=== PATIENT | female | born 1975 | race Caucasian/White ===

== ENCOUNTER 2023-11-18 23:43 | Emergency (ER) | payer OTHER, SELFPAY ==
[2023-11-18 23:53] VITALS: BP 161/106; PULSE 68; O2SAT 98; BMI 46.6
--- NOTE | 2023-11-19 00:15 | ED.DENTAL1 ---
HPI - Dental/Oral General Chief complaint: Dental/Oral Stated complaint: left side face pain jaw/dental Time Seen by Provider: 11/19/23 00:03 Source: patient Mode of arrival: walk-in History of Present Illness HPI Narrative: This 48-year-old female with a history of periodontal disease with multiple broken, decayed, decaying and missing teeth presents for evaluation of severe tooth ache around tooth #22 that is decayed to the gumline. The patient states for the past several days she has been having this pain. She has been calling local dentist but has yet to find a dentist that will take her insurance. She states she has this pain that is radiating into her left ear. She also feels a lump in the lateral aspect of her mandible. She denies any fever or difficulty swallowing. She has no chest pain or shortness of breath. She states that she has severe anxiety and the dentist makes her more anxious than anything else which is why she has avoided going to the dentist for some many years. She declines the need for any narcotic pain medications because she states these also make her very anxious. Related Data Home Medications ?Medication ?Instructions ?Recorded ?Confirmed bupropion HCl 300 mg 24 hr tablet, 300 mg PO DAILY 11/19/23 11/19/23 extended release cyclobenzaprine 5 mg tablet 5 mg PO BEDTIME 11/19/23 11/19/23 duloxetine 60 mg capsule,delayed 60 mg PO BEDTIME 11/19/23 11/19/23 release ergocalciferol (vitamin D2) 1,250 50,000 unit PO QWEEK 11/19/23 11/19/23 mcg (50,000 unit) capsule gabapentin 300 mg capsule 300 mg PO BEDTIME 11/19/23 11/19/23 levothyroxine 75 mcg tablet 75 mcg PO DAILY 11/19/23 11/19/23 meloxicam 15 mg tablet 15 mg PO DAILY 11/19/23 11/19/23 metformin 500 mg tablet 500 mg PO BID 11/19/23 11/19/23 spironolactone 25 1 tab PO DAILY 11/19/23 11/19/23 mg-hydrochlorothiazide 25 mg tablet Allergies Allergy/AdvReac Type Severity Reaction Status Date / Time ciprofloxacin [From Cipro] Allergy Severe rash Verified 11/19/23 00:02 metoclopramide [From Reglan] AdvReac Intermediate Rash Verified 11/19/23 00:02 promethazine [From Phenergan] AdvReac Intermediate Agitated Verified 11/19/23 00:02 Review of Systems ROS Status of ROS 10 or more systems reviewed and unremarkable except as noted in history and below Exam Narrative Exam Narrative: Vital signs and Nursing Notes reviewed: Patient has a normal pulse, blood pressure is elevated at 161/106, she is not hypoxic with pulse ox 98% on room air General: Awake, alert, oriented, uncomfortable appearing obese female, she is holding the left side of her face and rocking back and forth on the stretcher, no respiratory distress HEENT: Normocephalic atraumatic, mucous membranes are moist and pink, there is marked periodontal disease with multiple missing and decayed and broken teeth. Tooth #22 is decayed to the gumline which is where she is having the tenderness adjacent in her jaw. There is some mild tenderness of the lateral mandible where there is a questionable area of swelling/abscess formation. There is no periapical abscess appreciated. There is no pooling of secretions. There is no swelling of the tongue, uvula or pharyngeal soft tissues. Chest: Lungs are clear to auscultation with good air entry, there is no wheezing rhonchi or rales appreciated no accessory muscle use, patient is speaking in complete sentences-no chest wall tenderness to palpation CVS: Regular rate and rhythm S1-S2, no murmurs rubs or gallops, pulses are brisk and equal bilaterally Skin: Normal in appearance without rash,pallor, petechiae or purpura Neuro: No focal deficits Constitutional Vital Signs, click to edit/add: Last Vital Signs Pulse 68 11/18/23 23:53 Resp 16 11/18/23 23:53 BP 161/106 H 11/18/23 23:53 Pulse Ox 98 11/18/23 23:53 O2 Del Method Room Air 11/18/23 23:53 Course Vital Signs Vital signs: Vital Signs Pulse Rate 68 11/18/23 23:53 Respiratory Rate 16 11/18/23 23:53 Blood Pressure 161/106 H 11/18/23 23:53 Pulse Oximetry 98 11/18/23 23:53 Oxygen Delivery Method Room Air 11/18/23 23:53 Pulse Rate 68 11/18/23 23:53 Respiratory Rate 16 11/18/23 23:53 Blood Pressure 161/106 H 11/18/23 23:53 Pulse Oximetry 98 11/18/23 23:53 Oxygen Delivery Method Room Air 11/18/23 23:53 MDM - Dental/Oral MDM Narrative Medical decision making narrative: This 48-year-old female with a history of periodontal disease presents for evaluation of pain adjacent to tooth #22 which is decayed to the gumline and has local gingival erythema without a notable abscess. There is also some mild tenderness along the lateral mandible where she may be developing a dental abscess. She declines the need for any narcotic analgesics but request antibiotics. She will be given a dose of amoxicillin and dental analgesia in the emergency department and discharged home with a prescription for amoxicillin. I explained to her that she will likely need an oral surgeon as a dentist may not be able to extract the teeth that are decayed to the gumline. She verbalizes understanding of this. She is otherwise stable for discharge. Discharge Plan Discharge Stand Alone Forms: Portal Instructions Chief Complaint: Dental/Oral Clinical Impression: Toothache, Periodontal disease Patient Disposition: Home, Self-Care Time of Disposition Decision: 00:15 Condition: Good Prescriptions / Home Meds: No Action spironolacton-hydrochlorothiaz 25-25 mg tablet 1 tab PO DAILY metformin 500 mg tablet 500 mg PO BID meloxicam 15 mg tablet 15 mg PO DAILY levothyroxine 75 mcg tablet 75 mcg PO DAILY gabapentin 300 mg capsule 300 mg PO BEDTIME ergocalciferol (vitamin D2) 1,250 mcg (50,000 unit) capsule 50,000 unit PO QWEEK duloxetine 60 mg capsule,delayed release(DR/EC) 60 mg PO BEDTIME cyclobenzaprine 5 mg tablet 5 mg PO BEDTIME bupropion HCl 300 mg tablet extended release 24 hr 300 mg PO DAILY Print Language: Montenegrin Instructions: Toothache (ED), Periodontal Disease (DC) Referrals: PAUL RAZO [Primary Care Provider] - 1 week
[2023-11-19] MEDS: BENZOCAINE 30 ML, lidocaine HCL 15 ML MM (00:40)
[2023-11-19] MEDS: AMOXICILLIN 500 MG CAPSULE PO (00:40)
== END 2023-11-19 00:46 | disposition home or self-care (01) ==
PROVIDERS: Emergency Provider Emergency Medicine; PCP Family Medicine
DX: K05.6 Periodontal disease, unspecified (principal); K08.89 Other specified disorders of teeth and supporting structures
CPT/HCPCS: 99283

== ENCOUNTER 2024-12-20 17:15 | Emergency (ER) | payer MEDICARE, SELFPAY ==
--- OUTSIDE RECORDS SUMMARY | 2024-10-13 11:30 | XMS_ITS ---
Author Organization [facility] vices Address [address] [place], [place] [address] Care Team Providers Care Livestock Farm Manager Name Role Phone Patti Rosado Unavailable [phone] REASON FOR VISIT Pain Social History Sex Assigned At : Social History Observation Description Sex Assigned At Female Encounters Encounter Location Date Provider Diagnosis [address] [id number] 10/13 Patti Rosado Plan Of Treatment No Information Progress Notes * Rosy THOMASDOB:1975 ( 49 yo F)Acc No.[id number]:10/13/2024 Medical Note Patient: Rosy TSE Provider: Crissy Rosado :1975 A ge:48 Y S ex:Female Date:10/13/2024 Address:[address] [place], [place] [id number] Subjective: * Chief Complaints: * 1 . Pain. * Medical History: Objective: * Vitals: Assessment: Plan: * Treatment: * Billing Information: * Visit Code: * Procedure Codes: * Electronic signature of PEPE Garcia on 12/20/2024 at 05:32 PM EDT Sign off status: Pending * Provider: Crissy Rosado Date: 10/13/2024 Generated for Nithin nelson/Vero/eTransmitting on: 12/20/2024 05:32 PM EDT
--- OUTSIDE RECORDS SUMMARY | 2024-12-17 09:15 | XMS_ITS ---
Author Organization [facility] vices Address [address] [place] [address] Care Team Providers Care Pmo Business Analyst Name Role Phone Patti Rosado Unavailable [phone] REASON FOR VISIT 4m anxiety, low back pain Social History Sex Assigned At : Social History Observation Description Sex Assigned At Female Encounters Encounter Location Date Provider Diagnosis [address] [id number] 12/17 Patti Rosado Plan Of Treatment No Information Progress Notes * Rosy THOMASDOB:1975 ( 49 yo F)Acc No.[id number]:12/17/2024 Medical Note Patient: Rosy TSE Provider: Crissy Rosado :1975 A ge:49 Y S ex:Female Date:12/17/2024 Address:[address] [place], [place] [id number] Subjective: * Chief Complaints: * 1 . 4m anxiety, low back pain. * Medical History: Objective: * Vitals: Assessment: Plan: * Treatment: * Billing Information: * Visit Code: * Procedure Codes: * Electronic signature of PEPE Garcia on 12/20/2024 at 05:32 PM EDT Sign off status: Pending * Provider: Crissy Rosado Date: 12/17/2024 Generated for Printi ng/Deloresg/eTransmitting on: 12/20/2024 05:32 PM EDT
[2024-12-20 17:19] VITALS: BP 143/96; PULSE 87; TEMP 36.7; O2SAT 97; BMI 50.3
--- OUTSIDE RECORDS SUMMARY | 2024-12-20 17:31 | XMS_ITS | Encounter Summary ---
Author Organization [employer] [facility] [employer] Address [id number] [address] [place] [address] Care Team Providers Care Supervisor Chemical Name Role Phone TejaMorgan nelson Domi MUNIZ Primary Care Provider + [phone] Encounter Details Date Type Department Care Team (Late st Contact Info) Description 04/11/2023 Telephone [facility] Phys[facility] Internal Medicine - Family Medicine [address] [place] [address] Elissa Milian MA Social History Tobacco Use Types Packs/Day Years Used Date Smoking Tobacco: Never Smokeless Tobacco: Never Alcohol Use Standard Drinks/Week Comments Never 0 (1 standard drink = 0.6 oz pur e alcohol) [facility] Utilities Answer Date Recorded In the past 12 months has e electric, gas, oil, or water company threatened to shut off services in your home? No 04/04/2023 Social Connection and Isolation Panel [NHANES] A nswer Date Recorded In a typical week, how many times do you talk on the phone with family, friends, or neighbors? Once a week 12/21/2021 How often do you get together with friends or re latives? Once a week 12/21/2021 How often do you attend scientologist or latter day serv ices? Never 12/21/2021 Do you belong to any clubs o r organizations such as scientologist groups, unions, fraternal or athletic groups, or school groups? No 12/21/2021 How often do you attend meet ings of the clubs or organizations you belong to? Never 12/21/2021 Are you , , di vorced, , never , or living with a partner? 12/21/2021 AUDIT-C Answer Date Recorded Q1: How often do you have a drink containing alcohol? Never 12/21/2021 Q2: How many drinks containi ng alcohol do you have on a typical day when you are drinking? Patient does not drink Q3: How often do you have si x or more drinks on one occasion? Never 12/21/2021 Overall Financial Resource Strain (CARDIA) Answe r Date Recorded How hard is it for you to pa y for the very basics like food, housing, medical care, and heating? Somewhat hard 03/04/2023 PHQ-2 Answer Date Recorded Total Score 21 03/04/2023 [facility] - Occupational Stress Questionnaire Answer Date Recorded Do you feel stress - tense, restless, nervous, or anxious, or unable to sleep at night because your mind is troubled all the time - these days? Very much 12/21/2021 Exercise Vital Sign Answer Date Recorde d On average, how many days pe r week do you engage in moderate to strenuous exercise (like a brisk walk)? 7 days 04/04/2023 On average, how many minutes do you engage in exercise at this level? 20 min 04/04/2023 PRAPARE - Transportation Answer Date Re corded In the past 12 months, has l ack of transportation kept you from medical appointments or from getting medications? Yes 01/2023 In the past 12 months, has l ack of transportation kept you from meetings, work, or from getting things needed for daily living? Yes 03/04/2023 Housing Instability Answer Date Recorde d Are you worried or concerned that in the next two months you may not have stable housing that you own, rent or stay in as a part of a household? No 03/04/2023 Childcare Answer Date Recorded Do problems getting child ca re make it difficult for you to work or study? No 12/21/2021 Employment Answer Date Recorded Do you need help finding a l ocal career center and/or a training program? No 12/21/2021 Purpose - Life Answer Date Recorded I have a purpose and direction in my life. Agree 12/21/2021 Education Answer Date Recorded What is the highest level of school you have completed or the highest degree you have received? Associate degree: occupational, technical, or vocational program 12/29/2020 Comments No Sex and Gender Information Value Date Recorded Sex Assigned at Female 02/23/2019 9:46 PM EDT Legal Sex Female 11:30 AM EDT Gender Identity Female 02/23/2019 9:46 PM EDT Sexual Orientation Straight 02/23/2019 9: 46 PM EDT documented as of this encounter Miscellaneous Notes * Telephone Encounter - Elissa Milian MA - 04/11/2023 10:49 AM EST Pt called and said she was here for appt and adipex refill not sent into [facility]. If you could please send that, took last pill today documented in this encounter Plan of Treatment Not on file documented as of this encounter Visit Diagnoses Not on filedocumented in this encounter Additional Health Concerns Assessment Noted Time PHQ-9 Depression Total Score: 21 023 3:48 PM EDT A Body Mass Index follow-up plan has been documented for the patient 03/19/2022 9:20 PM EDT documented as of this encounter Care Teams Supervisor Chemical Relationship Specialty Start Date End Date Morgan May DO [address] [facility], [facility] [place] [address] PCP - General Family Medicine 03/04/23 06/03/24 documented as of this encounter
--- OUTSIDE RECORDS SUMMARY | 2024-12-20 17:31 | XMS_ITS | Clinical Summary ---
Author Organization [facility] Address [id number] [address] [place] [address] Care Team Providers Care Water Treatment Plant Repairer Name Role Phone Unavailable Primary Care Provider Unavailabl e Allergies Active Allergy Reactions Criticality Noted Date Comments Ciprofloxacin 01/01/2017 Promethazine 01/01/2017 Metoclopramide Hcl 01/01/2017 Medications ergocalciferol (DRISDOL) 1,250 mcg (50,000 unit) capsuleIndicatio ns:Vitamin D deficiency take 1 capsule by mouth every week 12 capsule 1 3 Active cyanocobalamin, vitamin B-12, 2,500 mcg tablet, sublingualIndica tions:Factor V Leiden take 1 tablet by mouth under the tongue once daily 30 tablet 2 3 Active HIBICLENS 4 % external liquid WASH AREAS ON ARMPITS DAILY NEEDED 3 Active lidocaine HCL (Aspercreme, lidocaine HCL,) 4 % cream apply 1 APPLICATION topically IN THE MORNING and 1 APPLICATION at bedtime 76.5 g 1 3 Active DULoxetine (CYMBALTA) 60 mg capsuleIndicatio ns:Fibromyalgia take 1 capsule by mouth every morning then take 1 capsule BEFORE BEDTIME 180 capsule 1 4 Active levothyroxine (SYNTHROID, LEVOTHROID) 75 MCG tabletIndication s:Hypothyroidism , unspecified type take 1 tablet by mouth every morning 90 tablet 1 4 Active spironolacton-hy droCHLOROthiaz (ALDACTAZIDE) 25-25 mg per tabletIndication s:Edema, unspecified type TAKE 1 TABLET BY MOUTH EVERY MORNING 90 tablet 4 Active cyclobenzaprine (FLEXERIL) 5 mg tabletIndication s:Fibromyalgia Take 1 tablet (5 mg total) by mouth nightly. 30 tablet 2 4 Active meloxicam (MOBIC) 15 mg tabletIndication s:Chronic pain of left knee Take 1 tablet (15 mg total) by mouth in the morning. 30 tablet 2 4 Active gabapentin (NEURONTIN) 300 mg capsuleIndicatio ns:Fibromyalgia Take 1 capsule (300 mg total) by mouth once daily at bedtime. 30 capsule 2 4 Active buPROPion XL (WELLBUTRIN XL) 300 mg 24 hr tabletIndication s:Class 3 severe obesity with serious comorbidity and body mass index (BMI) of 50.0 to 59.9 in adult, unspecified obesity type (CMS-HCC) take 1 tablet by mouth every morning 90 tablet 4 Active metFORMIN (GLUCOPHAGE) 500 mg tablet take 1 tablet by mouth every morning and every evening with meals 180 tablet 1 5 Active Active Problems Problem Noted Date Diagnosed Date Morbid obesity 05/02/2023 Pedal edema 03/04/2023 Spinal stenosis of lumbar re gion with neurogenic claudication 03/01/2022 Overview (03/01/2022): Added automatically from request for surgery [id number] Spondylolisthesis at L4-L5 level 10/11/2021 Depression 06/27/2021 Worsening body fluid retention 06/27/2021 Neurogenic bladder 03/20/2021 Overview (10/11/2021): Frequency and urgency at night, med helping with urgency Polyarthralgia 12/13/2020 Bruising 02/02/2020 Urticaria 02/02/2020 Chronic mixed headache syndrome 11/26/2019 Memory impairment of gradual onset 11/26/2019 Obstructive sleep apnea syndrome 11/26/2019 Fibromyalgia 07/07/2019 Bilateral occipital neuralgia 07/07/2019 Factor V Leiden 07/07/2019 Aching headache 07/07/2019 Hypothyroidism 07/07/2019 Vitamin D deficiency 06/02/2019 Raynaud's phenomenon without gangrene 06/02/2019 Class 3 severe obesity due t o excess calories with serious comorbidity and body mass index (BMI) of 45.0 to 49.9 in adult 02/24/2019 Metabolic syndrome 01/01/2019 Other mixed anxiety disorders 01/01/2019 Chronic pain syndrome 01/01/2019 Rosacea 01/01/2019 Resolved Problems Problem Noted Date Diagnosed Date Resolved Date Vascular dementia without be havioral disturbance 11/26/2019 01/06/2024 Edema 01/01/2019 03/31/2019 Caffeine abuse 01/01/2019 03/31/2019 Encounters Date Type Department Care Team Description 12/01/2024 Refill [facility] [address] [place] [address] Morgan May, DO Chronic pain of left knee 10/10/2024 Refill [facility] [address] [place] [address] Morgan May, Edema, unspecified type 10/05/2024 Refill [facility] [address] [facility] [place] [address] Elke Lopez N, LIQUID WASTE TREATMENT PLANT OPERATOR-PRODUCT DEVELOPMENT SPECIALIST 09/30/2024 Refill [facility] [address] [place] [address] Morgan May, DO Fibromyalgia 09/24/2024 Travel 09/23/2024 Refill [facility] [address] [place] [address] Morgan May, Class 3 severe obesity with serious comorbidity and body mass index (BMI) of 50.0 to 59.9 in adult, unspecified obesity type ([facility]) from Last 3 Months Immunizations Immunization Administration Dates Next Due Influenza, Injectable, quadrivalent (PF) 023 Family History Medical History Relation Name Comments Brain cancer Brother 1 Sergio Gaitan Depression Daughter 2 suicide attempt Diabetes Father Hypertension Father Anxiety disorder Maternal Grandmother Depression Maternal Grandmother Hypertension Maternal Grandmother Depression Mother Diabetes Mother Hypertension Mother Thyroid disease Mother Cancer Paternal Grandfather type ? Cancer Paternal Grandmother type ? Breast cancer Neg Hx Relation Name Status Comments Brother 1 Sergio Gaitan Alive Brother 2 Dewey Gaitan Alive Daughter 1 Alive Daughter 2 Alive Daughter 3 Alive Father Alive Maternal Grandfather Maternal Grandmother Alive Mother Alive Paternal Grandfather Paternal Grandmother Sister Alive Son 1 Alive Son 2 Alive Son 3 Alive Social History Tobacco Use Types Packs/Day Years Used Date Smoking Tobacco: Never Smokeless Tobacco: Never Tobacco Cessation:Counseling Given: Not Answered Alcohol Use Standard Drinks/Week Comments Never 0 (1 standard drink = 0.6 oz pur e alcohol) [facility] Utilities Answer Date Recorded In the past [...] week 12/21/2021 How often do you attend rastafarian or baptism serv ices? Never 12/21/2021 Do you belong to any clubs o r organizations such as rastafarian groups, unions, fraternal or athletic groups, or [...] housing, medical care, and heating? Somewhat hard 04/19/2024 PHQ-2 Answer Date Recorded Total Score 0 01/06/2024 [facility] [place] of Occupat ional Health - Occupational Stress Questionnaire Answer Date Recorded Do you feel stress - tense, restless, nervous, or anxious, or unable to sleep at night because your mind is troubled all the time - these days? Very much 12/21/2021 Exercise Vital Sign Answer Date Recorde d Days of Exercise per Week Not on file 2022 On average, how many minutes do you engage in exercise at this level? 10 min 05/02/2023 PRAPARE - Transportation Answer Date Re corded In the past 12 months, has l ack of transportation kept you from medical appointments or from getting medications? Yes 03/28 In the past 12 months, has l ack of transportation kept you from meetings, work, or from getting things needed for daily living? Yes 04/19/2024 Housing Instability Answer Date Recorde d Are you worried or concerned that in the next two months you may not have stable housing that you own, rent or stay in as a part of a household? No 04/19/2024 Childcare Answer Date Recorded Do problems getting child ca re make it difficult for you to work or study? No 12/21/2021 Employment Answer Date Recorded Do you need help finding a [facility] career center and/or a training program? No 12/21/2021 Hunger Screening Answer Date Recorded Within the past 12 months we worried whether our food would run out before we got money to buy more. Never True 024 Within the past 12 months th e food we bought just didn't last and we didn't have money to get more. Sometimes True 04/19/2024 Purpose - Life Answer Date Recorded I [...] Orientation Straight 02/23/2019 9: 46 PM EDT Last Filed Vital Signs Vital Sign Reading Time Taken Comments Blood Pressure 118/60 04/21/2024 2:18 PM EST Pulse 94 04/21/2024 2:18 PM EST Temperature 36.7 C (98 F) 04/21/2024 2:18 PM EST Respiratory Rate 18 04/21/2024 2:18 PM EST Oxygen Saturation 96% 04/21/2024 2:18 PM EST Inhaled Oxygen Concentration - - Weight 148.3 kg (327 lb) 04/21/2024 2:18 PM EST Height 165.1 cm (5' 5 ) 04/21/2024 2:18 PM EST Body Mass Index 54.42 04/21/2024 2:18 PM EST Plan of Treatment Health Maintenance Due Date Last Done Comments Adult BMI Follow Up Plan 10/26/1991 DTaP,Tdap and Td Vaccines (1 - Tdap) 1992 Pap Smear 1994 Zoster (Shingles) Vaccine (1 of 2) 10/26/2023 Mammogram 04/01/2024 04/01/2023, 07/05/2020 Depression Screening 01/05/2025 01/06/2024 Influenza Vaccine 01/25/2025 04/04/2023 Adult BMI Screening 04/21/2025 04/21/2024 Tobacco Screening 04/21/2025 04/21/2024 Colon Cancer Screening 3 Year Cologuard 04/25/2027 1 06/25/2023 Medical Devices Not on file Procedures Procedure Name Priority Date/Time Associated Diagnosis Comments COLOGUARD NON-[facility] Routine 04/25/2024 10:30 AM EST Screen for colon cancer MAMM SCREENING BILATERAL W CAD Routine 04/01/2023 10:49 AM EST Encounter for screening mammogram for malignant neoplasm of breast from Last 3 Months or Most Recently Relevant to Health Maintenance Results * [facility]ologuard [facility] (04/25/2024 10:30 AM EST) EXTERNAL COLOGUARD Negative Negative 2023 1:32 PM EST [facility] (CLIA #:[id number]) Comment: NEGATIVE TEST RESULT. A negative Cologuard result indicates a low likelihood that a colorectal cancer (CRC) or advanced adenoma (adenomatous polyps with more advanced pre-malignant features) is present. The chance that a person with a negative Cologuard test has a colorectal cancer is less than 1 in 1500 (negative predictive value >99.9%) or has an advanced adenoma is less than 5.3% (negative predictive value 94.7%). These data are based on a prospective cross-sectional study of 10,000 individuals at average risk for colorectal cancer who were screened with both Cologuard and colonoscopy. (Lila Cummings et al, N Engl J Med 2014;370(14):7299-1049) The normal value (reference range) for this assay is negative. COLOGUARD RE-SCREENING RECOMMENDATION: Periodic colorectal cancer screening is an important part of preventive healthcare for asymptomatic individuals at average risk for colorectal cancer. Following a negative Cologuard result, the [place] [employer] Society and U.S. Multi-Society Task Force screening guidelines recommend a Cologuard re-screening interval of 3 years. References: [place] [employer] Guideline for Colorectal Cancer Screening: https://www.cancer.org/cancer/wiynr-uvohww-kboanj/ddfhxggvy-ejlibodny-alswafj/ac s-rec ommendations.html.; Juan Carlos DK, Kai CHRISTOPHER, Cristy NavaK, Colorectal Cancer Screening: Recommendations for Physicians and Patients from the U.S. Multi-Society Task Force on Colorectal Cancer Screening , Am J Gastroenterology 2017; 112:8299-9368. TEST DESCRIPTION: Composite algorithmic analysis of stool DNA-biomarkers with hemoglobin immunoassay. Quantitative values of individual biomarkers are not reportable and are not associated with individual biomarker result reference ranges. Cologuard is intended for colorectal cancer screening of adults of either sex, 45 years or older, who are at average-risk for colorectal cancer (CRC). Cologuard has been approved for use by the U.S. FDA. The performance of Cologuard was established in a cross sectional study of average-risk adults aged 50-84. Cologuard performance in patients ages 45 to 49 years was estimated by sub-group analysis of near-age groups. Colonoscopies performed for a positive result may find as the most clinically significant lesion: colorectal cancer [4.0%], advanced adenoma (including sessile serrated polyps greater than or equal to 1cm diameter) [20%] or non- advanced adenoma [31%]; or no colorectal neoplasia [45%]. These estimates are derived from a prospective cross-sectional screening study of 10,000 individuals at average risk for colorectal cancer who were screened with both Cologuard and colonoscopy. (Lila Garland al, N Engl J Med 2014;370(14):3586-6894.) Cologuard may produce a false negative or false positive result (no colorectal cancer or precancerous polyp present at colonoscopy follow up). A negative Cologuard test result does not guarantee the absence of CRC or advanced adenoma (pre-cancer). The current Cologuard screening interval is every 3 years. ([place] [employer] and U.S. Multi-Society Task Force). Cologuard performance data in a 10,000 patient pivotal study using colonoscopy as the reference method can be accessed at the following location: www.[employer]/results. Additional description of the Cologuard test process, warnings and precautions can be found at www.arviem AGrd.Alignable. Stool specimen (specimen) Rectum structure / Unknown 04/25/2024 10:30 AM EST 04/26/2024 7:17 PM EST Morgan May DO LAB ORDERABLES Final Result [facility] (CLIA #:[id number]) [address] [place] [address], * Mammography screening bilateral with CAD (04/01/2023 10:49 AM EST) Anatomical Region Laterality Modality Breast Bilateral Mammography 04/01/2023 1:42 PM EST Narrative 04/01/2023 1:50 PM EST MAMM SCREENING BILATERAL W CAD 04/01/2023 10:29 AM HISTORY: Encounter for screening mammogram for malignant neoplasm of breast TECHNIQUE: Bilateral CC and MLO 3-D tomosynthesis with C-views performed. Computer-aided detection was used in the interpretation of this examination. COMPARISON: 07/05/2020 FINDINGS: Breast density: There are scattered areas of fibroglandular density. No suspicious calcifications, masses or architectural distortion. There are stable appearing intramammary lymph nodes bilaterally IMPRESSION: * No mammographic evidence of malignancy. ASSESSMENT- BI-RADS 2 - Benign Recommendation: Routine screening mammogram in 1 year Finalized by Clifford Smith MD on 04/01/2023 1:50 PM 2 b MAMM 1 YR Procedure Note Clifford Smith MD - 04/01/2023 MAMM SCREENING BILATERAL W CAD 04/01/2023 10:29 AM HISTORY: Encounter for screening mammogram for malignant neoplasm ofbreast TECHNIQUE: Bilateral CC and MLO 3-D tomosynthesis with C-views performed.Computer-aided detection was used in the interpretation of thisexamination. COMPARISON: 07/05/2020 FINDINGS: Breast density: There are scattered areas of fibroglandular density. No suspicious calcifications, masses or architectural distortion. There are stable appearing intramammary lymph nodes bilaterally IMPRESSION: * No mammographic evidence of malignancy. ASSESSMENT- BI-RADS 2 - Benign Recommendation: Routine screening mammogram in 1 year Finalized by Clifford Smith MD on 04/01/2023 1:50 PM 2 b MAMM 1 YR us Morgan May DO IMG MAMMOGRAPHY ORDERABLES F inal Result from Last 3 Months or Most Recently Relevant to Health Maintenance Insurance [employer] MEDICARE [place]ICAID [place]
--- OUTSIDE RECORDS SUMMARY | 2024-12-20 17:31 | XMS_ITS | Encounter Summary ---
Author Organization [facility] Address [id number] [address] [place] [address] Care Team Providers Care Baker Pastry Name Role Phone TejaMorgan nelson Domi MUNIZ Primary Care Provider + [phone] Reason for Visit * Reason Comments Med Refill Encounter Details Date Type Department Care Team (Late st Contact Info) Description 12/22/2021 Refill [facility] [address] [place] [address] NnaElke treviño N, MEDICAL PSYCHOTHERAPIST-UPPER INSPECTOR [address] [place] [address] Class 3 severe obesity with serious comorbidity and body mass index (BMI) of 50.0 to 59.9 in adult, unspecified obesity type (CMS-HCC); Chronic pain syndrome; Fibromyalgia Social History Tobacco Use Types Packs/Day Years Used Date Smoking Tobacco: Never Smokeless Tobacco: Never Alcohol Use Standard Drinks/Week Comments Never 0 (1 standard drink = 0.6 oz pur e alcohol) Social Connection and Isolation Panel [NHANES] A nswer Date Recorded In a typical week, how many times do you talk on the phone with family, friends, or neighbors? Once a week 12/21/2021 How often do you get together with friends or re latives? Once a week 12/21/2021 How often do you attend jainism or scientologist serv ices? Never 12/21/2021 Do you belong to any clubs o r organizations such as jainism groups, unions, fraternal or athletic groups, or [...] housing, medical care, and heating? Somewhat hard 12/21/2021 PHQ-2 Answer Date Recorded Total Score 13 12/21/2021 [facility] of Occupat ional Health - Occupational Stress [...] to strenuous exercise (like a brisk walk)? 0 days 12/21/2021 On average, how many minutes do you engage in exercise at this level? 0 min 12/21/2021 PRAPARE - Transportation Answer Date Re corded In the past 12 months, has l ack of transportation kept you from medical appointments or from getting medications? Yes 11/25 In the past 12 months, has l ack of transportation kept you from meetings, work, or from getting things needed for daily living? Yes 12/21/2021 Childcare Answer Date Recorded Do problems getting [...] Orientation Straight 02/23/2019 9: 46 PM EDT COVID-19 Exposure Response Date Recorded In the last month, have you been in contact with someone who was confirmed or suspected to have Coronavirus / COVID-19? No / Unsure 12/21/2021 10:41 AM EDT documented as of this encounter Plan of Treatment Not on file documented as of this encounter Visit Diagnoses Diagnosis Class 3 severe obesity with serious comorbidity and body mass index (BMI) of 50.0 to 59.9 in adult, unspecified obesity type ([facility]) Chronic pain syndrome Fibromyalgia Unspecified myalgia and myositis documented in this encounter Additional Health Concerns Assessment Noted Time PHQ-9 Depression Total Score: 13 022 10:55 AM EDT A Body Mass Index follow-up plan has been documented for the patient 12/21/2021 3:09 PM EDT documented as of this encounter Care Teams Baker Pastry Relationship Specialty Start Date End Date Morgan May DO [address] [facility] [place] [address] PCP - General Family Medicine 03/04/23 06/03/24 documented as of this encounter
--- OUTSIDE RECORDS SUMMARY | 2024-12-20 17:31 | XMS_ITS | Encounter Summary ---
Author Organization [facility] Address [id number] [address] [place] [address] Care Team Providers Care Corrosion Control Specialist Name Role Phone YadiraGlenMorgandawood Duron DO Primary Care Provider + [phone] Encounter Details Date Type Department Care Team (Late st Contact Info) Description 12/11/2021 Telephone [facility] [address] [id number] Lauren Roland Social History Tobacco Use Types Packs/Day Years Used Date Smoking Tobacco: Never Smokeless Tobacco: Never Alcohol Use Standard Drinks/Week Comments Never 0 (1 standard drink = 0.6 oz pur e alcohol) Social Connection and Isolation Panel [NHANES] A nswer Date Recorded In a typical week, how many times do you talk on the phone with family, friends, or neighbors? Twice a week 12/29/2020 How often do you get together with friends or re latives? Twice a week 12/29/2020 How often do you attend sabianism or jew serv ices? Never 12/29/2020 Do you belong to any clubs o r organizations such as sabianism groups, unions, fraternal or athletic groups, or school groups? No 12/29/2020 How often do you attend meet ings of the clubs or organizations you belong to? Never 12/29/2020 Are you , , di vorced, , never , or living with a partner? 12/29/2020 AUDIT-C Answer Date Recorded Q1: How often do you have a drink containing alc ohol? Never 12/29/2020 Average Number of Drinks Not on file 021 Q3: How often do you have si x or more drinks on one occasion? Never 12/29/2020 Overall Financial Resource Strain (CARDIA) Answe r Date Recorded How hard is it for you to pa y for the very basics like food, housing, medical care, and heating? Hard 12/29/2020 PHQ-2 Answer Date Recorded Total Score 0 09/21/2021 [employer] of Occupat ional Health - Occupational Stress Questionnaire Answer Date Recorded Do you feel stress - tense, restless, nervous, or anxious, or unable to sleep at night because your mind is troubled all the time - these days? Very much 12/29/2020 Exercise Vital Sign Answer Date Recorde d On average, how many days pe r week do you engage in moderate to strenuous exercise (like a brisk walk)? 0 days 12/29/2020 On average, how many minutes do you engage in exercise at this level? 10 min 12/29/2020 PRAPARE - Transportation Answer Date Re corded In the past 12 months, has l ack of transportation kept you from medical appointments or from getting medications? Yes 09/2020 In the past 12 months, has l ack of transportation kept you from meetings, work, or from getting things needed for daily living? Yes 12/29/2020 Childcare Answer Date Recorded Do problems getting child ca re make it difficult for you to work or study? No 12/29/2020 Employment Answer Date Recorded Do you need help finding a [facility] career center and/or a training program? No 12/29/2020 Purpose - Life Answer Date Recorded I have a purpose and direction in my life. Agree 12/29/2020 Education Answer Date Recorded What is the [...] have Coronavirus / COVID-19? No / Unsure 11/24/2021 8:12 AM EDT documented as of this encounter Miscellaneous Notes * Telephone Encounter - Lauren Lauren - 12/11/2021 9:42 AM EDT Yomaira Kumar called. Patient is scheduled for an MRI Cervical on 12/19, which has been denied.A peer to peer will need to completed within 5 days by calling [phone], reference: [id number]. They would not give the Precert team the reasoning because they were not the provider. * Telephone Encounter - AMADOU Orozco - 12/11/2021 9:42 AM EDT They needed documentation of 6 weeks of conservative treatment trial in the last six month. She wasgiven home exercises for cervical and lumbar 10/11/21 which she is doing twice daily, PT eval 11/07/2021, discharged 12/05/21. No improvement and she feels more off balance/unsteady and arms feel weak with band use. Still having hand numbness R>L but no arm pain. Peer to peer completed and approved until 01/18/2022 [id number]. I was unable to leave voicemail after hours, can you please update Yomaira/meghann-cert tomorrow. * Telephone Encounter - Lauren Lauren - 12/11/2021 9:42 AM EDT Yomaira Kumar notified. documented in this encounter Plan of Treatment Not on file documented as of this encounter Visit Diagnoses Not on filedocumented in this encounter Additional Health Concerns Assessment Noted Time PHQ-9 Depression Total Score: 0 09/22/19 22 10:21 AM EDT A Body Mass Index follow-up plan has been documented for the patient 12/21/2021 10:53 AM EDT documented as of this encounter Care Teams Corrosion Control Specialist Relationship Specialty Start Date End Date Morgan May DO [address] [place], [facility] [place] [address] PCP - General Family Medicine 03/04/23 06/03/24 documented as of this encounter
--- OUTSIDE RECORDS SUMMARY | 2024-12-20 17:31 | XMS_ITS | Encounter Summary ---
Author Organization [employer] Address [id number] [address] [place] [address] Care Team Providers Care Investigation Manager Name Role Phone YadiraGlenMorgandawood Duron DO Primary Care Provider + [phone] Encounter Details Date Type Department Care Team (Late st Contact Info) Description 04/26/2021 [facility] [address] [place] [address] Marianne Interiano CMA Social History Tobacco Use Types Packs/Day Years [...] week 12/29/2020 How often do you attend jew or mormon serv ices? Never 12/29/2020 Do you belong to any clubs o r organizations such as jew groups, unions, fraternal or athletic groups, or [...] PHQ-2 Answer Date Recorded Total Score 0 03/20/2021 [facility] of Occupat ional Health - Occupational Stress [...] Recorded Do you need help finding a [facility] career center and/or a training program? [...] encounter Miscellaneous Notes * Telephone Encounter - Marianne Interiano, STRIPPER LATEX - 04/26/2021 11:17 AM EST LVM to reschedule New Patient Appt on 08/03/21 in [place] [facility] as Dr. Adam will be out of office. This appt has already been cancelled. documented in this encounter Plan of Treatment Not on file documented as of this encounter Visit Diagnoses Not on filedocumented in this encounter Additional Health Concerns Assessment Noted Time PHQ-9 Depression Total Score: 0 03/20/20 21 2:00 PM EDT A Body Mass Index follow-up plan has been documented for the patient 03/21/2021 5:55 PM EDT documented as of this encounter Care Teams Investigation Manager Relationship Specialty Start Date End Date Morgan May DO [address], [place] [address] PCP - General Family Medicine 03/04/23 06/03/24 documented as of this encounter
--- OUTSIDE RECORDS SUMMARY | 2024-12-20 17:31 | XMS_ITS | Encounter Summary ---
Author Organization [employer] Address [id number] [address] [place] [address] Care Team Providers Care Cnc Milling Machine Operator Name Role Phone StephaniaMorgan pozo Domi MUNIZ Primary Care Provider + [phone] Reason for Visit * Reason Comments Med Refill Encounter Details Date Type Department Care Team (Late st Contact Info) Description 12/24/2021 Refill [facility] [address] [place] [address] [address] [place] [address] Nnakamila, Elke N, APPLICATION CONSULTANT-DYNAMOMETER TESTER [address] [facility] [place] [address] Social History Tobacco Use Types Packs/Day Years [...] week 12/21/2021 How often do you attend taoism or temple serv ices? Never 12/21/2021 Do you belong to any clubs o r organizations such as taoism groups, unions, fraternal or athletic groups, or [...] Answer Date Recorded Total Score 13 12/21/2021 [facility] of Occupat ional Health - Occupational Stress [...] Do you need help finding a l al career center and/or a training program? No [...] documented as of this encounter Care Teams Cnc Milling Machine Operator Relationship Specialty Start Date End Date Morgan May DO [address], [facility] [place] [address] PCP - General Family Medicine 03/04/23 06/03/24 documented as of this encounter
--- OUTSIDE RECORDS SUMMARY | 2024-12-20 17:31 | XMS_ITS | Encounter Summary ---
Author Organization [employer] Address [id number] [address] [place] [address] Care Team Providers Care Window Installation Subcontractor Name Role Phone StephaniaMorgan pozo Primary Care Provider + [phone] Reason for Visit * Reason Onset Date Comments Med Refill 08/14/2021 Encounter Details Date Type Department Care Team (Late st Contact Info) Description 08/14/2021 Refill [facility] [address] [place] [id number] Nica Terrell, CECILIA Fibromyalgia Social History Tobacco Use Types Packs/Day [...] week 12/29/2020 How often do you attend spiritism or uatsdin serv ices? Never 12/29/2020 Do you belong to any clubs o r organizations such as spiritism groups, unions, fraternal or athletic groups, or [...] Answer Date Recorded Total Score 0 03/20/2021 [facility] of Occupat ional Health - [...] Recorded Do you need help finding a [facility] career center and/or a training program? No [...] PM EDT documented as of this encounter Plan of Treatment Not on file documented as of this encounter Visit Diagnoses Diagnosis Fibromyalgia Unspecified myalgia and myositis documented in this encounter Additional Health Concerns Assessment Noted Time PHQ-9 Depression Total Score: 0 03/20/20 21 2:00 PM EDT A Body Mass Index follow-up plan has been documented for the patient 03/21/2021 5:55 PM EDT documented as of this encounter Care Teams Window Installation Subcontractor Relationship Specialty Start Date End Date Morgan May DO [address] [facility], [facility] [address] PCP - General Family Medicine 03/04/23 06/03/24 documented as of this encounter
--- OUTSIDE RECORDS SUMMARY | 2024-12-20 17:31 | XMS_ITS | Encounter Summary ---
Author Organization [facility] Address [id number] [address] [place] [address] Care Team Providers Care Director Of Instruction Name Role Phone TejaMorgan nelson Domi MUNIZ Primary Care Provider + [phone] Reason for Visit * Reason Comments Med Refill Encounter Details Date Type Department Care Team (Late st Contact Info) Description 02/06/2020 Refill [facility] [address] [place] [address] Ruth Ann Grant MD [address] [place] [address] Chronic pain syndrome Social History Tobacco Use Types Packs/Day Years Used Date Smoking Tobacco: Never Smokeless Tobacco: Never Alcohol Use Standard Drinks/Week Comments Never 0 (1 standard drink = 0.6 oz pur e alcohol) Social Connection and Isolation Panel [NHANES] A nswer Date Recorded In a typical week, how many times do you talk on the phone with family, friends, or neighbors? Once a week 10/11/19 20 How often do you get togethe r with friends or relatives? Never 10/11/2019 How often do you attend chur ch or muslim services? 1 to 4 times per year 10/11/2019 Do you belong to any clubs o r organizations such as sikhism groups, unions, fraternal or athletic groups, or school groups? No 10/11/2019 How often do you attend meet ings of the clubs or organizations you belong to? Never 10/11/2019 Are you , , di vorced, , never , or living with a partner? 10/11/2019 AUDIT-C Answer Date Recorded Q1: How often do you have a drink containing alc ohol? Monthly or less 10/11/2019 Q2: How many drinks containi ng alcohol do you have on a typical day when you are drinking? 1 or 2 10/11/2019 Q3: How often do you have si x or more drinks on one occasion? Never 10/11/2019 Overall Financial Resource Strain (CARDIA) Answe r Date Recorded How hard is it for you to pa y for the very basics like food, housing, medical care, and heating? Very hard 10/11/2019 PHQ-2 Answer Date Recorded Total Score 13 10/11/2019 [facility] [place] of Occupat ional Health - Occupational Stress Questionnaire Answer Date Recorded Do you feel stress - tense, restless, nervous, or anxious, or unable to sleep at night because your mind is troubled all the time - these days? To some extent 10/11/2019 Exercise Vital Sign Answer Date Recorde d On average, how many days pe r week do you engage in moderate to strenuous exercise (like a brisk walk)? 0 days 10/11/2019 On average, how many minutes do you engage in exercise at this level? 0 min 10/11/2019 PRAPARE - Transportation Answer Date Re corded In the past 12 months, has l ack of transportation kept you from medical appointments or from getting medications? Yes 09/24 In the past 12 months, has l ack of transportation kept you from meetings, work, or from getting things needed for daily living? Yes 10/11/2019 Childcare Answer Date Recorded Do problems getting child ca re make it difficult for you to work or study? No 10/11/2019 Employment Answer Date Recorded Do you need help finding a l ocal career center and/or a training program? No 10/11/2019 Education Answer Date Recorded What is the highest level of school you have completed or the highest degree you have received? Some college, no degree 10/11/2019 Comments No Sex and Gender Information Value [...] or suspected to have Coronavirus / COVID-19? Yes 02/02/2020 11:07 AM EDT documented as of this encounter Miscellaneous Notes * Telephone Encounter - Ruth Ann Grant MD - 02/06/2020 9:49 AM EDT We do find out from patient was Cece Melendez is and why was her Cymbalta discontinued because I have request from the pharmacy to refill it so I need to know what is going on thank you documented in this encounter Plan of Treatment Not on file documented as of this encounter Visit Diagnoses Diagnosis Chronic pain syndrome documented in this encounter Additional Health Concerns Infection Onset Date Last Indicated Resolved Time MRSA Comment:Left axilla abscess 02/08/2013 Infection converted via [employer] utility from [email or web address] system information 02/11/2013 02/11/2013 01/20/2021 11: 19 PM EDT Assessment Noted Time PHQ-9 Depression Total Score: 13 020 8:43 AM EDT A Body Mass Index follow-up plan has been documented for the patient 02/02/2020 6:52 PM EDT documented as of this encounter Care Teams Director Of Instruction Relationship Specialty Start Date End Date Morgan May DO [address] [facility], [place] [address] PCP - General Family Medicine 03/04/23 06/03/24 documented as of this encounter
--- OUTSIDE RECORDS SUMMARY | 2024-12-20 17:31 | XMS_ITS | Encounter Summary ---
Author Organization [facility] Address [facility] [id number] [address] [place] [address] Care Team Providers Care Medical Officer Psychiatry Name Role Phone TejaMorgan nelson Domi MUNIZ Primary Care Provider + [phone] Reason for Visit * Reason Comments Med Refill Encounter Details Date Type Department Care Team (Late st Contact Info) Description 07/26/2021 Refill [facility] [address] [place] [address] [address] [place] [address] NnaElke treviño N, PRODUCTION MECHANIC TIN CANS-QA TEST LEAD [address] [facility] [place] [address] Fibromyalgia Social History Tobacco Use Types Packs/Day [...] week 12/29/2020 How often do you attend caodaism or mandaeism serv ices? Never 12/29/2020 Do you belong to any clubs o r organizations such as caodaism groups, unions, fraternal or athletic groups, or [...] Answer Date Recorded Total Score 0 03/20/2021 [facility] [place] of Occupat ional Health - Occupational Stress [...] documented as of this encounter Care Teams Medical Officer Psychiatry Relationship Specialty Start Date End Date Morgan May DO [address], [facility] [address] PCP - General Family Medicine 03/04/23 06/03/24 documented as of this encounter
--- OUTSIDE RECORDS SUMMARY | 2024-12-20 17:31 | XMS_ITS | Clinical Summary ---
Author Organization [facility] Address [address] [facility], [address] [place] [address] Care Team Providers Care Electronic Security Technician Name Role Phone Ruth Ann Grant MD Primary Care Provider [phone] Allergies Active Allergy Reactions Criticality Noted Date Comments Promethazine 06/27/2021 Metoclopramide 06/27/2021 Medications magnesium oxide (MAG-OX) 400 MG tablet take 1 tablet by mouth twice a day FOR 8 WEEKS AND THEN 1 tablet NIGHTLY 1 Active meloxicam (MOBIC) 15 MG tablet 2 Active metFORMIN (GLUCOPHAGE-XR) 500 MG extended release tablet take 1 tablet by mouth once daily with breakfast 2 Active oxybutynin (DITROPAN) 5 MG tablet take 1 tablet by mouth twice a day 1 Active spironolactone- hydroCHLOROthia zide (ALDACTAZIDE) 25-25 MG per tablet take 1 tablet by mouth once daily 2 Active buPROPion (WELLBUTRIN XL) 300 MG extended release tablet 1 Active carBAMazepine (TEGRETOL XR) 200 MG extended release tablet take 1 tablet by mouth twice a day 2 Active DULoxetine (CYMBALTA) 60 MG extended release capsule take 1 capsule by mouth twice a day 2 Active vitamin D (ERGOCALCIFEROL ) 1.25 MG (64077 UT) CAPS capsule 1 Active levothyroxine (SYNTHROID) 75 MCG tablet take 1 tablet by mouth once daily 2 Active liothyronine (CYTOMEL) 5 MCG tablet 2 Active Active Problems Problem Noted Date Diagnosed Date Worsening body fluid retention 06/27/2021 Weight gain, abnormal 06/27/2021 Thyroid dysfunction 06/27/2021 Fibromyalgia 06/27/2021 Anxiety 06/27/2021 Depression 06/27/2021 Family History Medical History Relation Name Comments Diabetes Father Hypertension Father Diabetes Mother Hypertension Mother Thyroid Disease Mother Relation Name Status Comments Father Alive Mother Alive Social History Tobacco Use Types Packs/Day Years Used Date Smoking Tobacco: Never Smokeless Tobacco: Never Alcohol Use Standard Drinks/Week Comments Never 0 (1 standard drink = 0.6 oz pur e alcohol) Comments Unknown Sex and Gender Information Value Date Recorded Sex Assigned at Not on file Legal Sex Female 8:50 PM EST Gender Identity Not on file Sexual Orientation Not on file Last Filed Vital Signs Vital Sign Reading Time Taken Comments Blood Pressure 154/78 06/27/2021 2:37 PM EST Pulse 101 06/27/2021 2:37 PM EST Temperature 36.6 C (97.8 F) 06/27/2021 2:37 PM EST Respiratory Rate 20 06/27/2021 2:37 PM EST Oxygen Saturation - - Inhaled Oxygen Concentration - - Weight 144.2 kg (317 lb 14.4 oz) 06/27/2021 2:37 PM EST Height 165.1 cm (5' 5 ) 06/27/2021 2:37 PM EST Body Mass Index 52.9 06/27/2021 2:37 PM EST Plan of Treatment Not on file [place] [address] [place] [address] PLAN Care Teams Electronic Security Technician Relationship Specialty Start Date End Date Ruth Ann Grant MD PCP - General Family Medicine 09/05/20
--- OUTSIDE RECORDS SUMMARY | 2024-12-20 17:31 | XMS_ITS | Encounter Summary ---
Author Organization [facility] [facility] [employer] Address [id number] [address] [place] [address] Care Team Providers Care Casing Running Machine Tender Name Role Phone TejaMorgan nelson Domi MUNIZ Primary Care Provider + [phone] Reason for Visit * Reason Comments Med Refill Encounter Details Date Type Department Care Team (Late st Contact Info) Description 01/03/2022 Refill [facility] [address] [place] [address] NnaElke treviño N, CONVENTIONS RESERVATIONIST-IT SYSTEMS ADMINISTRATOR [address] [place] [address] Chronic pain syndrome Social History Tobacco Use [...] week 12/21/2021 How often do you attend religion or bahai serv ices? Never 12/21/2021 Do you belong to any clubs o r organizations such as religion groups, unions, fraternal or athletic groups, or [...] Answer Date Recorded Total Score 13 12/21/2021 [facility] [place] of Occupat ional Health - Occupational Stress [...] have Coronavirus / COVID-19? No / Unsure 01/04/2022 11:26 AM EDT documented as of this encounter [...] documented as of this encounter Care Teams Casing Running Machine Tender Relationship Specialty Start Date End Date Morgan May DO [address], [place] [address] PCP - General Family Medicine 03/04/23 06/03/24 documented as of this encounter
--- OUTSIDE RECORDS SUMMARY | 2024-12-20 17:31 | XMS_ITS | Encounter Summary ---
Author Organization [facility] tem Address [id number] [address] [place] [address] Care Team Providers Care Imposer Name Role Phone Morgan May DO Primary Care Provider [phone] Encounter Details Date Type Department Care Team (Late st Contact Info) Description 05/07/2023 Orders Only [facility] - Family Medicine [address] [place] [address] Morgan May DO [address], [facility] [place] [address] Social History Tobacco Use Types Packs/Day Years Used Date Smoking Tobacco: Never Smokeless Tobacco: Never Alcohol Use Standard Drinks/Week Comments Never 0 (1 standard drink = 0.6 oz pur e alcohol) [facility] Utilities Answer Date Recorded In the past 12 months has [employer], gas, oil, or water [employer] threatened to shut off services in your home? No 04/04/2023 Social Connection and Isolation Panel [NHANES] A nswer Date Recorded In a typical week, how many times do you talk on the phone with family, friends, or neighbors? Once a week 12/21/2021 How often do you get together with friends or re latives? Once a week 12/21/2021 How often do you attend lutheran or scientology serv ices? Never 12/21/2021 Do you belong to any clubs o r organizations such as lutheran groups, unions, fraternal or athletic groups, or [...] 03/04/2023 PHQ-2 Answer Date Recorded Total Score 0 05/02/2023 [facility] - Occupational Stress Questionnaire Answer Date Recorded [...] Recorded Do you need help finding a [facility] career center and/or a training program? No 12/21/2021 Hunger Screening Answer Date Recorded Within the past 12 months we worried whether our food would run out before we got money to buy more. Never True 05/02/2023 Within the past 12 months th e food we bought just didn't last and we didn't have money to get more. Never True 05/02/2023 Purpose - Life Answer Date Recorded I [...] Noted Time PHQ-9 Depression Total Score: 0 05/02/20 23 2:58 PM EST A Body Mass Index follow-up plan has been documented for the patient 03/19/2022 9:20 PM EDT documented as of this encounter Care Teams Imposer Relationship Specialty Start Date End Date Morgan May DO [address], [facility] [place] [address] PCP - General Family Medicine 03/04/23 06/03/24 documented as of this encounter
--- OUTSIDE RECORDS SUMMARY | 2024-12-20 17:31 | XMS_ITS | Encounter Summary ---
Author Organization [facility] Address [facility] [id number] [address] [place] [address] Care Team Providers Care Design Drafter Chief Name Role Phone StephaniaMorgan pozo Domi MUNIZ Primary Care Provider + [phone] Reason for Visit * Reason Comments Med Refill Encounter Details Date Type Department Care Team (Late st Contact Info) Description 09/17/2021 Refill [facility] [address] [place] [address] [address] [place] [address] Nnakamila, Elke N, CIGAR MAKING MACHINE OPERATOR-WASHTUB WORKER HELPER [address] [facility] [place] [address] Edema, unspecified type Social History Tobacco Use Types Packs/Day Years [...] week 12/29/2020 How often do you attend jehovah's witness or jew serv ices? Never 12/29/2020 Do you belong to any clubs o r organizations such as jehovah's witness groups, unions, fraternal or athletic groups, or [...] Answer Date Recorded Total Score 0 09/21/2021 [facility] [place] of Occupat ional Health - Occupational Stress [...] Exposure Response Date Recorded In the last 10 days, have carolyn u been in contact with someone who was confirmed or suspected to have Coronavirus/COVID-19? No / Unsure 09/20/2021 10:47 AM EDT documented as of this encounter Plan of Treatment Not on file documented as of this encounter Visit Diagnoses Diagnosis Edema, unspecified type documented in this encounter Additional Health Concerns Assessment Noted Time PHQ-9 Depression Total Score: 0 03/20/20 21 2:00 PM EDT A Body Mass Index follow-up plan has been documented for the patient 03/21/2021 5:55 PM EDT documented as of this encounter Care Teams Design Drafter Chief Relationship Specialty Start Date End Date Morgan May DO [address] [facility], [facility] [place] [address] PCP - General Family Medicine 03/04/23 06/03/24 documented as of this encounter
--- OUTSIDE RECORDS SUMMARY | 2024-12-20 17:31 | XMS_ITS | Encounter Summary ---
Author Organization [facility] [employer] [facility] tem Address [facility] [id number] [address] [place] [address] Care Team Providers Care Forklift Picker Name Role Phone Morgan May DO Primary Care Provider [phone] Encounter Details Date Type Department Care Team (Late st Contact Info) Description 05/25/2023 Telephone [facility] Internal Medicine - Family Medicine [address] [place] [address] Morgan May DO [address], [place] [address] Social History Tobacco Use Types Packs/Day Years Used Date Smoking Tobacco: Never Smokeless Tobacco: Never Alcohol Use Standard Drinks/Week Comments Never 0 (1 standard drink = 0.6 oz pur e alcohol) [facility] Utilities Answer Date Recorded In the past 12 months has [employer], gas, oil, or water [employer] threatened to shut off services in your home? No 04/04/2023 Social Connection and Isolation Panel [NHANES] A nswer Date Recorded In a typical week, how many times do you talk on the phone with family, friends, or neighbors? Once a week 12/21/2021 How often do you get together with friends or re latives? Once a week 12/21/2021 How often do you attend zoroastrian or sikhism serv ices? Never 12/21/2021 Do you belong to any clubs o r organizations such as zoroastrian groups, unions, fraternal or athletic groups, or [...] Answer Date Recorded Total Score 0 05/02/2023 [facility] - Occupational Stress Questionnaire Answer Date [...] Recorded Do you need help finding a [facility] career center and/or a training program? [...] documented as of this encounter Care Teams Forklift Picker Relationship Specialty Start Date End Date Morgan May DO [address], [place] [address] PCP - General Family Medicine 03/04/23 06/03/24 documented as of this encounter
--- OUTSIDE RECORDS SUMMARY | 2024-12-20 17:31 | XMS_ITS | Encounter Summary ---
Author Organization [facility] Address [facility] [place]-[id number] [address] [place] [address] Care Team Providers Care Can Filling Machine Operator Name Role Phone Morgan May DO Primary Care Provider [phone] Reason for Visit * Reason Comments Med Refill Encounter Details Date Type Department Care Team (Late st Contact Info) Description 10/04/2023 Refill [facility] - Family Medicine [address] [place] [address] Morgan May DO [address], [facility] [place] [address] Morbid obesity with BMI of 50.0-59.9, adult ([facility]) Social History Tobacco Use Types Packs/Day Years Used Date Smoking Tobacco: Never Smokeless Tobacco: Never Alcohol Use Standard Drinks/Week Comments Never 0 (1 standard drink = 0.6 oz pur e alcohol) [facility] Utilities Answer Date Recorded In the past 12 months has [employer], gas, oil, or water company threatened [...] week 12/21/2021 How often do you attend yazdanism or temple serv ices? Never 12/21/2021 Do you belong to any clubs o r organizations such as yazdanism groups, unions, fraternal or athletic groups, or [...] PHQ-2 Answer Date Recorded Total Score 0 08/26/2023 [facility] of Occupat ional Health - [...] Recorded Do you need help finding a [facility] career center and/or a training program? No 12/21/2021 Hunger Screening Answer Date Recorded Within the past 12 months we worried whether our food would run out before we got money to buy more. Never True 08/26/2023 Within the past 12 months th e food we bought just didn't last and we didn't have money to get more. Never True 08/26/2023 Purpose - Life Answer Date Recorded I [...] as of this encounter Visit Diagnoses Diagnosis Morbid obesity with BMI of 50.0-59.9, adult (CMS-HCC) documented in this encounter Additional Health Concerns Assessment Noted Time PHQ-9 Depression Total Score: 0 08/26/19 24 2:44 PM EDT A Body Mass Index follow-up plan has been documented for the patient 03/19/2022 9:20 PM EDT documented as of this encounter Care Teams Can Filling Machine Operator Relationship Specialty Start Date End Date Morgan May DO [address] [facility], [facility] [place] [address] PCP - General Family Medicine 03/04/23 06/03/24 documented as of this encounter
--- OUTSIDE RECORDS SUMMARY | 2024-12-20 17:31 | XMS_ITS | Clinical Summary ---
Author Organization [facility] Address [address] [place] [address] Phone Care Team Providers Care Horse Racing Analyst Name Role Phone Unavailable Primary Care Provider Unavailabl e Social History Tobacco Use Types Packs/Day Years Used Date Smoking Tobacco: Never Assessed Comments Unknown Sex and Gender Information Value Date Recorded Sex Assigned at Not on file Legal Sex Female 9:07 PM EST Gender Identity Not on file Sexual Orientation Not on file Plan of Treatment Not on file
--- OUTSIDE RECORDS SUMMARY | 2024-12-20 17:31 | XMS_ITS | Encounter Summary ---
Author Organization [facility] tem Address [facility] [id number] [address] [place] [address] Care Team Providers Care Project Engineer Chemicals Name Role Phone YadiraMorgan Domi MUNIZ Primary Care Provider [phone] Encounter Details Date Type Department Care Team (Late st Contact Info) Description 05/12/2020 Telephone [facility] [address] [place] [phone] Ruth Ann Grant MD [address] [place] [address] Social History Tobacco Use Types Packs/Day Years [...] often do you attend chur ch or hindu services? 1 to 4 times per year 10/11/2019 Do you belong to any clubs o r organizations such as restorationist groups, unions, fraternal or athletic groups, or [...] Answer Date Recorded Total Score 13 10/11/2019 [facility] of Occupat ional Health - Occupational Stress [...] suspected to have Coronavirus / COVID-19? Yes 05/12/2020 2:13 PM EST documented as of this encounter Plan of Treatment Not on file documented as of this encounter Visit Diagnoses Not on filedocumented in this encounter Additional Health Concerns Infection Onset Date Last Indicated Resolved Time MRSA Comment:Left axilla abscess 02/08/2013 Infection converted via [facility] from [employer] system information 02/11/2013 02/11/2013 01/20/2021 11: 19 PM EDT Assessment Noted Time PHQ-9 Depression Total Score: 13 020 8:43 AM EDT A Body Mass Index follow-up plan has been documented for the patient 04/19/2020 9:20 PM EST documented as of this encounter Care Teams Project Engineer Chemicals Relationship Specialty Start Date End Date Morgan May DO [address], [facility] [address] PCP - General Family Medicine 03/04/23 06/03/24 documented as of this encounter
--- OUTSIDE RECORDS SUMMARY | 2024-12-20 17:31 | XMS_ITS | Encounter Summary ---
Author Organization [facility] Address [facility]-[id number] [address] [place] [address] Care Team Providers Care Community Support Specialist Name Role Phone TejaMorgan nelson Domi MUNIZ Primary Care Provider + [phone] Reason for Visit * Reason Onset Date Comments Med Refill 06/13/2021 Encounter Details Date Type Department Care Team (Late st Contact Info) Description 06/13/2021 Refill [facility] [address] [facility] [address] [place] [phone] Nica Terrell CMA Other mixed anxiety disorders; Chronic mixed headache syndrome Social History Tobacco Use Types Packs/Day [...] week 12/29/2020 How often do you attend muslim or orthodoxy serv ices? Never 12/29/2020 Do you belong to any clubs o r organizations such as muslim groups, unions, fraternal or athletic groups, or [...] Answer Date Recorded Total Score 0 03/20/2021 [facility] [place] of Occupat ional Health - Occupational Stress [...] Recorded Do you need help finding a [facility] career center and/or a training program? No [...] as of this encounter Visit Diagnoses Diagnosis Other mixed anxiety disorders Chronic mixed headache syndrome Other headache syndromes documented in this encounter Additional Health Concerns Assessment Noted Time PHQ-9 Depression Total Score: 0 03/20/20 21 2:00 PM EDT A Body Mass Index follow-up plan has been documented for the patient 03/21/2021 5:55 PM EDT documented as of this encounter Care Teams Community Support Specialist Relationship Specialty Start Date End Date Morgan May DO [address] [facility], [facility], [facility] [place] [address] PCP - General Family Medicine 03/04/23 06/03/24 documented as of this encounter
--- OUTSIDE RECORDS SUMMARY | 2024-12-20 17:32 | XMS_ITS | Encounter Summary ---
Author Organization [employer] [facility] tem Address [facility] [place]-[id number] [address] [place] [address] Care Team Providers Care Supervisor Sample Preparation Name Role Phone TejaMorgan nelson Primary Care Provider [phone] Reason for Visit * Reason Onset Date Comments Prior Auth for medication 02/06/2019 Encounter Details Date Type Department Care Team (Late st Contact Info) Description 02/06/2019 Telephone [facility] [address] [place] [phone] Jose Manuel Walker LPN Prior Auth for medication Social History Tobacco Use Types Packs/Day Years Used Date Smoking Tobacco: Never Smokeless Tobacco: Never Alcohol Use Standard Drinks/Week Comments Yes 0 (1 standard drink = 0.6 oz pur e alcohol) occassionally PHQ-2 Answer Date Recorded PHQ-2 Score 20 01/01/2019 Childcare Answer Date Recorded Childcare Unknown 11/05/2018 Employment Answer Date Recorded Employment Unknown 11/05/2018 Comments Unknown Sex and Gender Information Value [...] Comment:Left axilla abscess 02/08/2013 Infection converted via [employer] utility from [employer] system information 02/11/2013 02/11/2013 01/20/2021 11: 19 PM EDT Assessment Noted Time PHQ-9 Depression Total Score: 20 019 2:00 PM EDT A Body Mass Index follow-up plan has been documented for the patient 01/01/2019 7:11 PM EDT documented as of this encounter Care Teams Supervisor Sample Preparation Relationship Specialty Start Date End Date Morgan May DO [address], [facility] [place] [address] PCP - General Family Medicine 03/04/23 06/03/24 documented as of this encounter
--- OUTSIDE RECORDS SUMMARY | 2024-12-20 17:32 | XMS_ITS | Encounter Summary ---
Author Organization [facility] Address [facility] [id number] [address] [place] [address] Care Team Providers Care Mold Shifter Name Role Phone TejaMorgan nelson Domi MUNIZ Primary Care Provider + [phone] Reason for Visit * Reason Comments Med Refill Encounter Details Date Type Department Care Team (Late st Contact Info) Description 03/22/2022 Refill [facility] [address] [place] [address] NnaElke treviño N, BOILER/CHILLER TECHNICIAN-METAL BENCH PATTERNMAKER [address] [place] [address] Vitamin D deficiency Social History Tobacco Use Types Packs/Day Years [...] week 12/21/2021 How often do you attend scientology or baptism serv ices? Never 12/21/2021 Do you belong to any clubs o r organizations such as scientology groups, unions, fraternal or athletic groups, or [...] 12/21/2021 PHQ-2 Answer Date Recorded Total Score 8 03/19/2022 [facility] of Occupat ional Health - Occupational Stress [...] have Coronavirus / COVID-19? No / Unsure 03/19/2022 10:07 AM EDT documented as of this encounter Plan of Treatment Not on file documented as of this encounter Visit Diagnoses Diagnosis Vitamin D deficiency documented in this encounter Additional Health Concerns Assessment Noted Time PHQ-9 Depression Total Score: 8 03/19/20 22 10:10 AM EDT A Body Mass Index follow-up plan has been documented for the patient 03/19/2022 9:20 PM EDT documented as of this encounter Care Teams Mold Shifter Relationship Specialty Start Date End Date Morgan May DO [address], [place] [address] PCP - General Family Medicine 03/04/23 06/03/24 documented as of this encounter
--- OUTSIDE RECORDS SUMMARY | 2024-12-20 17:32 | XMS_ITS | Encounter Summary ---
Author Organization [facility] tem Address [id number] [address] [place] [address] Care Team Providers Care Upholstery Covers Inspector Name Role Phone YadiraMorgan Domi MUNIZ Primary Care Provider + [phone] Encounter Details Date Type Department Care Team (Late st Contact Info) Description 07/04/2020 Orders Only [facility] - COVID Vaccine [address] [place] [phone] External, Scanning Provider Social History Tobacco Use Types Packs/Day Years [...] often do you attend chur ch or scientologist services? 1 to 4 times per year 10/11/2019 Do you belong to any clubs o r organizations such as faith groups, unions, fraternal or athletic groups, or [...] Answer Date Recorded Total Score 13 10/11/2019 [facility] of Occupat ional Health - Occupational Stress [...] center and/or a training program? No 10/11/2019 Purpose - Life Answer Date Recorded Purpose and direction in life Unknown Education Answer Date Recorded What is the [...] have Coronavirus / COVID-19? No / Unsure 07/05/2020 1:58 PM EST documented as of this encounter Plan of Treatment Not on file documented as of this encounter Procedures Procedure Name Priority Date/Time Associated Diagnosis Comments SARS COV 2 (COVID-19) STAT 05/14/2020 documented in this encounter Results * SARS COV 2 (COVID-19) (05/14/2020) EXTERNAL SARS COV 2 Negative Negative MANUALLY TRANSCRIBED RESULTS NASOPHARYNGEAL 05/14/2020 us Scanning Provider External MICROBIOLOGY - GENERA L ORDERABLES Final Result MANUALLY TRANSCRIBED RESULTS documented in this encounter Visit Diagnoses Not on filedocumented in this encounter Additional Health Concerns Infection Onset Date Last Indicated Resolved Time MRSA Comment:Left axilla abscess 02/08/2013 Infection converted via [employer] utility from [employer] system information 02/11/2013 02/11/2013 01/20/2021 11: 19 PM EDT Assessment Noted Time PHQ-9 Depression Total Score: 13 020 8:43 AM EDT A Body Mass Index follow-up plan has been documented for the patient 06/30/2020 10:47 PM EST documented as of this encounter Care Teams Upholstery Covers Inspector Relationship Specialty Start Date End Date Morgan May DO [address], [facility] [place] [address] PCP - General Family Medicine 03/04/23 06/03/24 documented as of this encounter
--- OUTSIDE RECORDS SUMMARY | 2024-12-20 17:32 | XMS_ITS | Encounter Summary ---
Author Organization [employer] [facility] Address [id number] [address] [place] [address] Care Team Providers Care Epic Beacon Analyst Name Role Phone TejaMorgan nelson Primary Care Provider Encounter Details Date Type Department Care Team (Late st Contact Info) Description 01/29/2019 Telephone [facility] [address] [place] [phone] Jose Manuel Walker, DONOR RELATIONS ASSOCIATE Social History Tobacco Use Types Packs/Day Years [...] Comment:Left axilla abscess 02/08/2013 Infection converted via [employer] utility from [employer] system information 02/11/2013 02/11/2013 01/20/2021 11: 19 PM EDT Assessment Noted Time PHQ-9 Depression Total Score: 20 019 2:00 PM EDT A Body Mass Index follow-up plan has been documented for the patient 01/01/2019 7:11 PM EDT documented as of this encounter Care Teams Epic Beacon Analyst Relationship Specialty Start Date End Date Morgan May DO [address] [place] [address] PCP - General Family Medicine 03/04/23 06/03/24 documented as of this encounter
--- OUTSIDE RECORDS SUMMARY | 2024-12-20 17:32 | XMS_ITS | Encounter Summary ---
Author Organization [facility] Address [facility]-[id number] [address] [place] [address] Care Team Providers Care Senior Chemical Process Engineer Name Role Phone TejaMorgan nelson Domi MUNIZ Primary Care Provider + [phone] Reason for Visit * Reason Comments Med Refill Encounter Details Date Type Department Care Team (Late st Contact Info) Description 04/24/2022 Refill [facility] [address] [place] [address] NnaElke treviño N, MANAGER COMMUNITY DEVELOPMENT-SALES REPRESENTATIVE GROCERIES [address] [place] [address] Fibromyalgia; Anxiety; Psychophysiological insomnia Social History Tobacco Use Types Packs/Day Years [...] week 12/21/2021 How often do you attend congregation or sikhism serv ices? Never 12/21/2021 Do you belong to any clubs o r organizations such as congregation groups, unions, fraternal or athletic groups, or [...] Answer Date Recorded Total Score 8 03/19/2022 [facility] of Occupat ional Health - Occupational Stress [...] have Coronavirus / COVID-19? No / Unsure 04/16/2022 8:35 AM EST documented as of this encounter Plan of Treatment Not on file documented as of this encounter Visit Diagnoses Diagnosis Fibromyalgia Unspecified myalgia and myositis Anxiety Anxiety state, unspecified Psychophysiological insomnia Persistent disorder of initiating or maintaining sleep documented in this encounter Additional Health Concerns Assessment Noted Time PHQ-9 Depression Total Score: 8 03/19/20 22 10:10 AM EDT A Body Mass Index follow-up plan has been documented for the patient 03/19/2022 9:20 PM EDT documented as of this encounter Care Teams Senior Chemical Process Engineer Relationship Specialty Start Date End Date Morgan May DO [address], [place] [address] PCP - General Family Medicine 03/04/23 06/03/24 documented as of this encounter
--- OUTSIDE RECORDS SUMMARY | 2024-12-20 17:32 | XMS_ITS | Encounter Summary ---
Author Organization [facility] Address [facility]-[id number] [address] [place] [address] Care Team Providers Care Stores Despatch Hand Name Role Phone StephaniaMorgan pozo Domi MUNIZ Primary Care Provider + [phone] Reason for Visit * Reason Comments Med Refill Encounter Details Date Type Department Care Team (Late st Contact Info) Description 03/23/2022 Refill [facility] [address] [place] [address] NnaElke treviño N, JAR CAPPER-CAREER DEVELOPMENT COORDINATOR [address] [place] [address] Hypothyroidism, unspecified type Social History Tobacco Use Types [...] week 12/21/2021 How often do you attend holiness or gnosticist serv ices? Never 12/21/2021 Do you belong to any clubs o r organizations such as holiness groups, unions, fraternal or athletic groups, or [...] Answer Date Recorded Total Score 8 03/19/2022 [facility] [place] of Occupat ional Health - Occupational Stress [...] as of this encounter Visit Diagnoses Diagnosis Hypothyroidism, unspecified type documented in this encounter Additional Health Concerns Assessment Noted Time PHQ-9 Depression Total Score: 8 03/19/20 22 10:10 AM EDT A Body Mass Index follow-up plan has been documented for the patient 03/19/2022 9:20 PM EDT documented as of this encounter Care Teams Stores Despatch Hand Relationship Specialty Start Date End Date Morgan May DO [address], [facility] [place] [address] PCP - General Family Medicine 03/04/23 06/03/24 documented as of this encounter
--- OUTSIDE RECORDS SUMMARY | 2024-12-20 17:32 | XMS_ITS | Encounter Summary ---
Author Organization [facility] Address [facility] [place]-[id number] [address] [place] [address] Care Team Providers Care Membership Sales Advisor Name Role Phone TejaMorgan nelson Domi MUNIZ Primary Care Provider + [phone] Reason for Visit * Reason Comments Med Refill Encounter Details Date Type Department Care Team (Late st Contact Info) Description 01/18/2022 Refill [facility] [address] [place] [address] NnaElke treviño N, STAPLING MACHINE OPERATOR-DIVERSIFIED CROPS I FARMWORKER [address] [place] [address] Anxiety; Psychophysiological insomnia Social History Tobacco Use [...] week 12/21/2021 How often do you attend episcopalian or pentecostal serv ices? Never 12/21/2021 Do you belong to any clubs o r organizations such as episcopalian groups, unions, fraternal or athletic groups, or [...] 12/21/2021 PHQ-2 Answer Date Recorded Total Score 17 01/18/2022 [facility] [place] of Occupat ional Health - Occupational Stress [...] have Coronavirus / COVID-19? No / Unsure 01/18/2022 1:07 PM EDT documented as of this encounter Miscellaneous Notes * Telephone Encounter - AMADOU Cantu - 01/18/2022 9:51 AM EDT Patient has an appointment today documented in this encounter Plan of Treatment Not on file documented as of this encounter Visit Diagnoses Diagnosis Anxiety Anxiety state, unspecified Psychophysiological insomnia Persistent disorder of initiating or maintaining sleep documented in this encounter Additional Health Concerns Assessment Noted Time PHQ-9 Depression Total Score: 17 022 1:16 PM EDT A Body Mass Index follow-up plan has been documented for the patient 01/18/2022 2:36 PM EDT documented as of this encounter Care Teams Membership Sales Advisor Relationship Specialty Start Date End Date Morgan May DO [address] [facility], [place] [address] PCP - General Family Medicine 03/04/23 06/03/24 documented as of this encounter
--- OUTSIDE RECORDS SUMMARY | 2024-12-20 17:32 | XMS_ITS | Encounter Summary ---
Author Organization [facility] Address [facility] [place]-[id number] [address] [place] [address] Care Team Providers Care Casting Machine Set Up Operator Name Role Phone TejaMorgan nelson Domi MUNIZ Primary Care Provider + [phone] Reason for Visit * Reason Comments Med Refill Encounter Details Date Type Department Care Team (Late st Contact Info) Description 06/27/2022 Refill [facility] [address] [place] [address] NnaElke treviño N, COMBINATION TECHNICIAN-HHA [address] [place] [address] Social History Tobacco Use Types [...] week 12/21/2021 How often do you attend oriental orthodox or rastafarian serv ices? Never 12/21/2021 Do you belong to any clubs o r organizations such as oriental orthodox groups, unions, fraternal or athletic groups, or [...] Answer Date Recorded Total Score 8 03/19/2022 [facility] [place] of Occupat ional Health - Occupational Stress [...] documented as of this encounter Care Teams Casting Machine Set Up Operator Relationship Specialty Start Date End Date Morgan May DO [address], [facility] [place] [address] PCP - General Family Medicine 03/04/23 06/03/24 documented as of this encounter
--- OUTSIDE RECORDS SUMMARY | 2024-12-20 17:32 | XMS_ITS | Encounter Summary ---
Author Organization [facility] Address [facility]-[id number] [address] [place] [address] Care Team Providers Care Second Vp Hr Assessment Name Role Phone StephaniaMorgan pozo Primary Care Provider + [phone] Reason for Visit * Reason Comments Med Refill Encounter Details Date Type Department Care Team (Late st Contact Info) Description 03/25/2022 Refill [facility] [address] [place] [address] NnaElke treviño N, COOPER APPRENTICE-JAMB CUTTER [address] [place] [address] Edema, unspecified type Social History [...] week 12/21/2021 How often do you attend restorationism or nondenominational serv ices? Never 12/21/2021 Do you belong to any clubs o r organizations such as restorationism groups, unions, fraternal or athletic groups, or [...] Answer Date Recorded Total Score 8 03/19/2022 [facility] [place] of Occupat ional Health - Occupational Stress [...] documented as of this encounter Care Teams Second Vp Hr Assessment Relationship Specialty Start Date End Date Morgan May DO [address], [place] [address] PCP - General Family Medicine 03/04/23 06/03/24 documented as of this encounter
--- OUTSIDE RECORDS SUMMARY | 2024-12-20 17:32 | XMS_ITS | Encounter Summary ---
Author Organization [facility] Address [id number] [address] [place] [address] Care Team Providers Care Laser Printing Operator Name Role Phone TejaMorgan nelson Domi MUNIZ Primary Care Provider + [phone] Reason for Visit * Reason Comments Med Refill Encounter Details Date Type Department Care Team (Late st Contact Info) Description 12/11/2020 Refill [facility] [address] [place] [address] [address] [place] [address] Ruth Ann Grant MD [address] [place] [address] Hypothyroidism, unspecified type Social History Tobacco Use [...] often do you attend chur ch or adventism services? 1 to 4 times per year [...] Answer Date Recorded Total Score 13 10/11/2019 [facility] - Occupational Stress [...] have Coronavirus / COVID-19? No / Unsure 12/13/2020 1:32 PM EDT documented as of this encounter Plan of Treatment Not on file documented as of this encounter Visit Diagnoses Diagnosis Hypothyroidism, unspecified type documented in this encounter Additional Health Concerns Infection Onset Date Last Indicated Resolved Time MRSA Comment:Left axilla abscess 02/08/2013 Infection converted via [employer] utility from [employer] system information 02/11/2013 02/11/2013 01/20/2021 11: 19 PM EDT Assessment Noted Time PHQ-9 Depression Total Score: 13 020 8:43 AM EDT A Body Mass Index follow-up plan has been documented for the patient 10/07/2020 12:04 PM EDT documented as of this encounter Care Teams Laser Printing Operator Relationship Specialty Start Date End Date Morgan May DO [address], [place] [address] PCP - General Family Medicine 03/04/23 06/03/24 documented as of this encounter
--- NOTE | 2024-12-20 17:41 | ED.GENADUL1 ---
HPI HPI - General Adult General Chief complaint: Dental/Oral Stated complaint: TOOTH PAIN SWOLLEN Time Seen by Provider: 12/20/24 17:19 Source: patient Mode of arrival: walk-in History of Present Illness HPI narrative: 49-year-old female presents for toothache. She is complaining of pain to her left central and lateral incisors. She knows that she has to see an oral surgeon and needs to have these extracted. She has seen a dentist about it. She came to get dental anesthesia and an antibiotic. She is requesting no narcotics. The pain is moderate to severe and continuous. Related Data Home Medications ?Medication ?Instructions ?Recorded ?Confirmed bupropion HCl 300 mg 24 hr tablet, 300 mg PO DAILY 11/19/23 12/20/24 extended release cyclobenzaprine 5 mg tablet 5 mg PO BEDTIME 11/19/23 12/20/24 duloxetine 60 mg capsule,delayed 60 mg PO BEDTIME 11/19/23 12/20/24 release ergocalciferol (vitamin D2) 1,250 50,000 unit PO QWEEK 11/19/23 12/20/24 mcg (50,000 unit) capsule gabapentin 300 mg capsule 300 mg PO BEDTIME 11/19/23 12/20/24 levothyroxine 75 mcg tablet 75 mcg PO DAILY 11/19/23 12/20/24 meloxicam 15 mg tablet 15 mg PO DAILY 11/19/23 12/20/24 metformin 500 mg tablet 500 mg PO BID 11/19/23 12/20/24 spironolactone 25 1 tab PO DAILY 11/19/23 12/20/24 mg-hydrochlorothiazide 25 mg tablet Previous Rx's ?Medication ?Instructions ?Recorded ibuprofen 800 mg tablet 800 mg PO Q8H PRN pain #20 tabs 12/20/24 penicillin V potassium 250 mg 250 mg PO QID 10 days #40 tabs 12/20/24 tablet Allergies Allergy/AdvReac Type Severity Reaction Status Date / Time ciprofloxacin (From Cipro) Allergy Severe rash Verified 12/20/24 17:19 metoclopramide (From Reglan) AdvReac Intermediate Rash Verified 12/20/24 17:19 promethazine (From Phenergan) AdvReac Intermediate Agitated Verified 12/20/24 17:19 Opioid HPI Opioid Management Most Recent Opioid Data: Last Pain Scale 7 Today, 17:19 Review of Systems ROS Narrative A ten point review of systems is negative except as noted above. PFSH PFSH Social History Little interest or pleasure in doing things: not at all Feeling down, depressed, or hopeless: not at all Exam Narrative Exam Narrative: Nurses note and vital signs reviewed and patient is not hypoxic. General: The patient appears well and in no apparent distress. Patient is resting comfortably on cart. Skin: Warm, dry, no pallor noted. There is no rash noted. Head: Normocephalic, atraumatic Eye: Normal conjunctiva, no drainage Ears, Nose, Mouth, and Throat: oral mucosa is moist. Nares patent. No swelling to the floor of her mouth. The left upper central incisor is partially missing and the left upper lateral incisor is eroded down to the gumline. No bleeding or pus present. No gingival swelling. Cardiovascular: Regular Rate and Rhythm Respiratory: Patient is in no distress, no accessory muscle use Back: non-tender GI: Soft and nontender Musculoskeletal: The patient has no evidence of calf tenderness, no pitting edema, symmetrical pulses noted bilaterally Neurological: A&O, normal speech Psychiatric: Cooperative Constitutional Vital Signs, click to edit/add: Last Vital Signs Temp 98.0 F 12/20/24 17:19 Pulse 87 12/20/24 17:19 Resp 16 12/20/24 17:19 BP 143/96 H 12/20/24 17:19 Pulse Ox 97 12/20/24 17:19 O2 Del Method Room Air 12/20/24 17:19 Course Vital Signs Vital signs: Vital Signs Temperature 98.0 F 12/20/24 17:19 Pulse Rate 87 12/20/24 17:19 Respiratory Rate 16 12/20/24 17:19 Blood Pressure 143/96 H 12/20/24 17:19 Pulse Oximetry 97 12/20/24 17:19 Oxygen Delivery Method Room Air 12/20/24 17:19 Temperature 98.0 F 12/20/24 17:19 Pulse Rate 87 12/20/24 17:19 Respiratory Rate 16 12/20/24 17:19 Blood Pressure 143/96 H 12/20/24 17:19 Pulse Oximetry 97 12/20/24 17:19 Oxygen Delivery Method Room Air 12/20/24 17:19 Medical Decision Making MDM Narrative Medical decision making narrative: She was provided dental anesthesia as well as prescriptions for ibuprofen and penicillin. She requested no narcotics. Treatment diagnosis and follow-up were discussed with the patient. Differential Diagnosis Differential Diagnosis: Dental abscess, gingivitis, dental caries Discharge Plan Discharge Chief Complaint: Dental/Oral Clinical Impression: Toothache, Dental caries Patient Disposition: Home, Self-Care Time of Disposition Decision: 17:38 Condition: Good Mode of Transportation: Private Vehicle Prescriptions / Home Meds: New penicillin V potassium 250 mg tablet 250 mg PO QID 10 Days Qty: 40 0RF ibuprofen 800 mg tablet 800 mg PO Q8H PRN (Reason: pain) Qty: 20 0RF No Action spironolacton-hydrochlorothiaz 25-25 mg tablet 1 tab PO DAILY metformin 500 mg tablet 500 mg PO BID meloxicam 15 mg tablet 15 mg PO DAILY levothyroxine 75 mcg tablet 75 mcg PO DAILY gabapentin 300 mg capsule 300 mg PO BEDTIME ergocalciferol (vitamin D2) 1,250 mcg (50,000 unit) capsule 50,000 unit PO QWEEK duloxetine 60 mg capsule,delayed release(DR/EC) 60 mg PO BEDTIME cyclobenzaprine 5 mg tablet 5 mg PO BEDTIME bupropion HCl 300 mg tablet extended release 24 hr 300 mg PO DAILY Print Language: Sinhala Instructions: Toothache (ED) Referrals: PAUL RAZO [Primary Care Provider, Family Practice] - 1 week
[2024-12-20] MEDS: BENZOCAINE 30 ML, lidocaine HCL 15 ML MM (18:00)
== END 2024-12-20 18:01 | disposition home or self-care (01) ==
PROVIDERS: Emergency Provider Emergency Medicine; PCP Family Medicine
DX: K08.89 Other specified disorders of teeth and supporting structures (principal); K02.9 Dental caries, unspecified
CPT/HCPCS: 99283

== ENCOUNTER 2025-05-22 06:17 | Emergency (ER) | payer MEDICARE, SELFPAY ==
--- OUTSIDE RECORDS SUMMARY | 2024-03-30 09:22 | XMS_ITS | Continuity of Care Document ---
[facility] Organization [facility] Address [address] [place] [address] Phone Care Team Providers Care Behavior Analyst Name Role Phone Gene Efrain RIVERA Unavailable Unavailable Allergies, Adverse Reactions, Alerts Substance Reaction Status Criticality METOCLOPRAMIDE HCL Active No Inform ation PROMETHAZINE HCL Active No Informat ion ciprofloxacin Active No Information Medications Medication Instructions Dosage Effective Dates (start - stop) Status Comments levothyroxine 75 mcg tablet - Active bupropion HCl XL 300 mg 24 hr tablet, extended release TAKE 1 TABLET BY MOUTH EVERY MORNING - Active spironolactone 25 mg-hydrochlorothiazid e 25 mg tablet TAKE 1 TABLET BY MOUTH EVERY MORNING - Active amoxicillin 500 mg capsule - No Longer Active gabapentin 300 mg capsule take 1 capsule by mouth at bedtime - No Longer Active ondansetron HCl 4 mg tablet take tablet by mouth daily if needed for nausea - No Longer Active duloxetine 60 mg capsule,delayed release take 1 capsule by mouth every morning then take 1 capsule BEFORE BEDTIME - No Longer Active metformin 500 mg tablet take 1 tablet by mouth every morning and evening with meals - No Longer Active phentermine 37.5 mg capsule take 1 capsule by mouth every morning before breakfast - No Longer Active gabapentin 100 mg capsule take 1 capsule by mouth every morning then take 1 capsule at bedtime - No Longer Active meloxicam 15 mg tablet take 1 tablet by mouth every morning - No Longer Active Flagyl 500 mg tablet take 1 tablet by oral route every 12 hours - No Longer Active Zithromax 500 mg tablet take 2 tablet by oral route once 1000 MG - No Longer Active ceftriaxone 250 mg solution for injection inject 250mg by intramuscular route - No Longer Active Procedures Procedure Date Panoramic Film Oral Hygiene Instruction Limited Oral Eval PREVENTIVE NEW AGE 40-64 Condoms Advance Directives Directive Yes / No Effective Date File Name No Information Encounters Encounter Description Practice Location Reason(s) For Visit Diagnoses Date Provider Providers Copied on Encounter [facility], [address] [place] [address], [id number], tel:[phone] [facility] de (chief complaint) Encounter for screening for dental disordersBody mass index [BMI] 50.0-59.9, adult Gene Zuniga. [address] [place], [place], [id number], [place]. tel:[phone] [facility], [address] [place] [address], [id number], tel:[phone] [facility] No Information [facility] Mai. [address] [place] [address], [id number], [place]. 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 [address] [place] [address], [id number], [place]. tel:[phone] Family History Family Member Type Diagnosis Age At Onset Mother Problem Alive and well Father Problem Alive and well Payers Payer name Insurance type Covered constitution party ID Farzaneh del rio(noris Up [facility] Envolve [id number] D Medicaid Wrap - [facility] [id number] Social History Type Description Quantity Date Captured Comments Alcohol Use Details No Caffeine Use Details No Tobacco Use Status Current non-smoker Smoking Status Never smoker Non-Smoking Tobacco Use Details : No Details Available : No Details Available [id number] SexFemaleSexual OrientationStraight or [id number] Gender [id number] Vital Signs Date / Time: Height Weight BMI Pulse Rate Blood Pressure Temperature Respiratory Rate Body Surface Area Head Circumference Head Circ. Percentile Wt./Darryl. Percentile BMI percentile Pulse Ox Inhaled Ox 3:14 PM 65.00 in 145.150 kg (320.00 lbs) 53.2 5 kg/m eter (2) 132 /min 125/73 mm[Hg] 98.60 F 2.58 meter(2) Chief Complaint And Reason For Visit From encounter dated 03/30/2024 14:22'. de (chief complaint). Description: Dental new Reason For Referral Reason For Referral No Information Plan Of Treatment Date Type Action Status Goal FIT-DNA. Due on due Goal Tdap. Due on due Goal Hep A. Due on du e Goal HPV. Due on due Goal Lipid panel. Due on 024 due Goal FOBT. Due on due Goal Tdap Vaccine. Due on 2023 due Goal Influenza vaccine. Due on No due Goal CT-Colonography. Due on due Goal PRAPARE ASSESSMENT. Due on N due Goal FIT. Due on due Goal Hepatitis C screening. Due o n due Goal Mammogram. Due on 4 due Goal Zoster vaccine (1st). Due on due Goal Depression screening. Due on due Goal Unhealthy drug use screening . Due on due Goal Colonoscopy. Due on 024 due Goal Dietary management education , guidance, and counseling completed History Of Present Illness Encounter Date Complaint History Of Prese nt Illness de Dental new annual exam The patient stat es she uses tubal ligation for control. Her menses is regular. The patient does not use tobacco. Tobacco cessation has been discussed. She does not drink alcohol. Additional information: Patient here for annual exam. Pap and cultures today. has been unfaithful and she is having abnormal discharge with odor. He is being seen by Dr. Mena today. She has had a mammogram through her family physician. RICCARDO Perez. annual exam (comments) Josemanuel prakash her has had additional partners and he has drainage coming from his penis and she is here due to vaginal discharge with odor. 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 States she does plan to stay with her and work out their issues. States she has had a mammorgam done with her PCP and does not need an appointment today. Declines HIV and RPR today Functional Status Date Functional Assessmen t No Information Instructions Date Instruction Additional Infor bhumi Dietary management e ducation, guidance, and counseling Related to Body mass index [BMI] 50.0-59.9, adult Cervical cultures se nt to lab. Patient to call in 1 week for results. Will treat today with rocephin and zithromax due to probable exposure Related to - STD screen Encouraged monthly B SE. Recommend calcium 1000mg QD. Encouraged good dietary intake and exercise. Laboratory specimens sent to lab. Patient to call in 2 weeks if desires results. 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
--- OUTSIDE RECORDS SUMMARY | 2025-01-18 08:45 | XMS_ITS ---
Author Organization [facility] vices Address [address] [place], [place] [id number] Care Team Providers Care Systems Navigator Name Role Phone Italia Razo Primary Care Provider [phone] Chris Crockett [phone] REASON FOR VISIT Wellness & labs Social History Sex Assigned At : Social History Observation Description Sex Assigned At Female Encounters Encounter Location Date Provider Diagnosis Main [address] [place], [place] [id number] 01/18/2025 Chris Crockett Plan Of Treatment No Information Progress Notes * MARTHARosyDOB:1975 ( 49 yo F)Acc No.[id number]:01/18/2025 Medical Note Patient: Rosy Hanna :?Chris CastrodDOB:1975???Age:49 Y???Sex:Female Date:01/18/2025Phone:[phone]:[address] [place] [id number] Pcp:Italia Razo Subjective: * Chief Complaints: * W ellness & labs Billing Information: * Procedure Codes: * Electronic signature of GIBRAN Day on 05/22/2025 at 06:37 AM ESTSign off status: Pending * Provider: Elijah Crockett Date: 0 01/18/2025 Generated for Printing/Faxing/eTransmitting on:?05/22/2025 06:37 AM EST
--- OUTSIDE RECORDS SUMMARY | 2025-01-18 09:00 | XMS_ITS ---
Author Organization [facility] vices Address [address] [place], [place] [id number] Care Team Providers Care Neon Technician Name Role Phone Italia Razo Primary Care Provider REASON FOR VISIT wellness Social History Sex Assigned At : Social History Observation Description Sex Assigned At Female Encounters Encounter Location Date Provider Diagnosis [address] [id number] 01/18/2025 Italia Razo Plan Of Treatment No Information Progress Notes * MARTHAGeovannykinseyDOB:1975 ( 49 yo F)Acc No.[id number]:01/18/2025 Medical Note Patient: Rosy Hanna :?Italia Razo APRN, FNP-CDOB:1975???Age: 49 Y???Sex:FemaleDate:01/18/2025Phone:[phone]:[address] [place] [phone] Subjective: * Chief Complaints: * W ellness * Electronic signature of KIERRA Scott on 05/22/2025 at 06:37 AM EST Sign off status: Pending * Provider: Angely Razo APRN, FNP-C Date: 0 01/18/2025 Generated for Printing/Faxing/eTransmitting on:?05/22/2025 06:37 AM EST
--- OUTSIDE RECORDS SUMMARY | 2025-02-04 09:00 | XMS_ITS ---
Author Organization [facility] vices Address [address] [place], [place] [id number] Care Team Providers Care Cashier Tube Room Name Role Phone Italia Razo Primary Care Provider REASON FOR VISIT wellness Social History Sex Assigned At : Social History Observation Description Sex Assigned At Female Encounters Encounter Location Date Provider Diagnosis [address] [id number] 02/04/2025 Italia Razo Plan Of Treatment No Information Progress Notes * MARTHARosyDOB:1975 ( 49 yo F)Acc No.[id number]:02/04/2025 Progress Notes Patient: Rosy Hanna :?Italia Razo APRN, FNP-CDOB:1975???Age: 49 Y???Sex:FemaleDate:02/04/2025Phone:[phone]:[address] [place] [phone] Subjective: * Chief Complaints: * W ellness Billing Information: * Procedure Codes: * Electronic signature of KIERRA Scott on 05/22/2025 at 06:37 AM EST Sign off status: Pending * Provider: Angely Razo APRN, FNP-C Date: 0 02/04/2025 Generated for Printing/Faxing/eTransmitting on:?05/22/2025 06:37 AM EST
--- OUTSIDE RECORDS SUMMARY | 2025-05-11 08:15 | XMS_ITS ---
Author Organization [facility] vices Address [address] [place], [place] [phone] Care Team Providers Care Data Entry Specialist Name Role Phone Italia Razo Primary Care Provider [phone] REASON FOR VISIT [employer] Social History Sex Assigned At : Social History Observation Description Sex Assigned At Female Encounters Encounter Location Date Provider Diagnosis [address] [phone] 05/11/2025 Italia Razo Plan Of Treatment No Information Progress Notes * MARTHARosyDOB:1975 ( 49 yo F)Acc No.[id number]:05/11/2025 Medical Note Patient: Rosy Hanna :?Italia Razo APRN, FNP-CDOB:1975???Age: 49 Y???Sex:FemaleDate:05/11/2025Phone:[phone]:[address] [place] [phone] Subjective: * Chief Complaints: * W WE Billing Information: * Procedure Codes: * Electronic signature of KIERRA Scott on 05/22/2025 at 06:37 AM EST Sign off status: Pending * Provider: Angely Razo APRN, FNP-C Date: 07/12/2024 Generated for Printing/Faxing/eTransmitting on:?05/22/2025 06:37 AM EST
[2025-05-22 06:20] VITALS: BP 171/104; PULSE 84; TEMP 37; O2SAT 96; BMI 48.7
--- NOTE | 2025-05-22 06:27 | PC.NURSE ---
Dental pain to left lower jaw.
--- OUTSIDE RECORDS SUMMARY | 2025-05-22 06:37 | XMS_ITS | Clinical Summary ---
Author Organization [employer] tem Address [id number] [place] [address] Care Team Providers Care External Grinder Tool Name Role Phone Unavailable Primary Care Provider Unavailabl e Allergies Active AllergyReactionsCriticalityNoted OblxZwvmbeqqXnvhrnwplespy04/08/2017 Xhkqcwixebgi05/08/2017Metoclopramide Hcl01/01/2017 Medications MedicationSigDispense QuantityRefillsLast FilledStart DateEnd DateStatus ergocalciferol (DRISDOL) 1,250 mcg (50,000 unit) capsule Indications:Vitamin D deficiencytake 1 capsule by mouth every week 12 capsule ctive cyanocobalamin, vitamin B-12, 2,500 mcg tablet, sublingual Indications:Factor V Leidentake 1 tablet by mouth under the tongue once daily 30 tablet ctive HIBICLENS 4 % external liquid WASH AREAS ON ARMPITS DAILY FAETNL5302/21/2023ctive lidocaine HCL (Aspercreme, lidocaine HCL,) 4 % cream apply 1 APPLICATION topically IN THE MORNING and 1 APPLICATION at bedtime 76.5 g ctive DULoxetine (CYMBALTA) 60 mg capsule Indications:Fibromyalgiatake 1 capsule by mouth every morning then take 1 capsule BEFORE BEDTIME 180 capsule ctive levothyroxine (SYNTHROID, LEVOTHROID) 75 MCG tablet Indications:Hypothyroidism, unspecified typetake 1 tablet by mouth every morning 90 tablet ctive spironolacton-hydroCHLOROthiaz (ALDACTAZIDE) 25-25 mg per tablet Indications:Edema, unspecified typeTAKE 1 TABLET BY MOUTH EVERY MORNING 90 tablet 4Active cyclobenzaprine (FLEXERIL) 5 mg tablet Indications:FibromyalgiaTake 1 tablet (5 mg total) by mouth nightly. 30 tablet ctive meloxicam (MOBIC) 15 mg tablet Indications:Chronic pain of left kneeTake 1 tablet (15 mg total) by mouth in the morning. 30 tablet ctive gabapentin (NEURONTIN) 300 mg capsule Indications:FibromyalgiaTake 1 capsule (300 mg total) by mouth once daily at bedtime. 30 capsule ctive buPROPion XL (WELLBUTRIN XL) 300 mg 24 hr tablet Indications:Class 3 severe obesity with serious comorbidity and body mass index (BMI) of 50.0 to 59.9 in adult,unspecified obesity type (CMS-HCC)take 1 tablet by mouth every morning 90 tablet 4Active metFORMIN (GLUCOPHAGE) 500 mg tablet take 1 tablet by mouth every morning and every evening with meals 180 tablet 5Active Active Problems ProblemNoted DateDiagnosed DateMorbid tfbzyxx78/07/2023Pedal edema03/04/2023 Spinal stenosis of lumbar region with neurogenic vmsurhpdqgmd31/06/2022 Overview (03/01/2022): Added automatically from request for surgery [id number] Spondylolisthesis at L4-L5 level8071Cltoblwxos02/01/2022Worsening body fluid jogajqnno13/01/2022Neurogenic djvfdng9203/20/2021 Overview (10/11/2021): Frequency and urgency at night, med helping with urgency Wzpbhdiwvaxlrc65/20/7421Xnpqnoai55/08/6211Qpcvgwbuj60/08/2020Chronic mixed headache cmvwadqf36/02/2020Memory impairment of gradual onset11/26/2019 Obstructive sleep apnea vsaslzct12/02/1159Odpysgiadagc45/11/2020Bilateral occipital gpfdiecmu59/11/2020Factor V Tfbxrf2007/07/2019Aching wfttnvpy62/11/2020 Eyowajibtrodos66/11/2020Vitamin D zurnfrkriv63/07/2020Raynaud's phenomenon without yrlgzouo55/07/2020Class 3 severe obesity due to excess calories with serious comorbidity and body mass index (BMI) of45.0 to 49.9 in adult02/24/2019 Metabolic qwoqjdqa66/08/2019Other mixed anxiety /08/2019Chronic pain nyoletvi49/08/2781Ytbcnmm59/08/2019 Resolved Problems ProblemNoted DateDiagnosed DateResolved DateVascular dementia without behavioral jqlcgmilbjg03EdemaCaffeine abuse01/01/2019 03/31/2019 Immunizations ImmunizationAdministration DatesNext DueInfluenza, Injectable, quadrivalent (PF) 04/04/2023 Family History Medical HistoryRelationNameCommentsBrain cancerBrother 1Steve MesserDepression Daughter 2suicide attemptDiabetesFatherHypertensionFatherAnxiety disorder Maternal GrandmotherDepressionMaternal GrandmotherHypertensionMaternal GrandmotherDepressionMotherDiabetesMotherHypertensionMotherThyroid diseaseMother CancerPaternal Grandfathertype ?CancerPaternal Grandmothertype ?Breast cancerNeg HxRelationNameStatusCommentsBrother 1Steve MesserAliveBrother 2Ron MesserAlive Daughter 1AliveDaughter 2AliveDaughter 3AliveFatherAliveMaternal Grandfather DeceasedMaternal GrandmotherAliveMotherAlivePaternal GrandfatherDeceasedPaternal GrandmotherDeceasedSisterAliveSon 1AliveSon 2AliveSon 3Alive Social History Tobacco UseTypesPacks/DayYears UsedDateSmoking Tobacco: NeverSmokeless Tobacco: Never Tobacco Cessation:Counseling Given: Not Answered Alcohol UseStandard Drinks/WeekCommentsNever0 (1 standard drink = 0.6 oz pure alcohol)[facility] UtilitiesAnswerDate RecordedIn the past 12 months has the Leveler, gas, oil, or water [employer] threatened to shut off services in your home?No 04/04/2023Social Connection and Isolation PanelAnswerDate RecordedIn a typical week, how many times do you talk on the phone with family, friends, or neighbors?Once a week12/21/2021How often do you get together with friends or relatives?Once a week12/21/2021How often do you attend moravian or latter-day services?Never2Do you belong to any clubs or organizations such as moravian groups, unions, fraternal or athletic groups, or school groups?No 12/21/2021How often do you attend meetings of the clubs or organizations you belong to?Never12/21/2021re you , , , , never , or living with a partner?Zmtydfw0812/21/2021UDIT-CAnswerDate RecordedQ1: How often do you have a drink containing alcohol?Never12/21/2021Q2: How many drinks containing alcohol do you have on a typical day when you are drinking? Patient does not drink12/21/2021Q3: How often do you have six or more drinks on one occasion?Never12/21/2021verall Financial Resource Strain (CARDIA)AnswerDate RecordedHow hard is it for you to pay for the very basics like food, housing, medical care, and heating?Somewhat hard04/19/2024HQ-2AnswerDate RecordedTotal Ddipf410Finut[facility] [place] of Occupational Health - Occupational Stress QuestionnaireAnswerDate RecordedDo you feel stress - tense, restless, nervous, or anxious, or unable to sleep at night because yourmind is troubled all the time - these days?Very much12/21/2021Exercise Vital SignAnswerDate RecordedDays of Exercise per WeekNot on file05/02/2023On average, how many minutes do you engage in exercise at this level?10 min05/02/2023RAPARE - TransportationAnswer Date RecordedIn the past 12 months, has lack of transportation kept you from medical appointments or from getting medications?Yes04/19/2024In the past 12 months, has lack of transportation kept you from meetings, work, or from getting things needed for daily living?Yes04/19/2024Housing InstabilityAnswerDate RecordedAre you worried or concerned that in the next two months you may not have stable housing that you own, rent or stay in as a part of a household?No 04/19/2024hildcareAnswerDate RecordedDo problems getting children counselor make it difficult for you to work or study?No12/21/2021EmploymentAnswerDate RecordedDo you need help finding a local career center and/or a training program?No 12/21/2021Hunger ScreeningAnswerDate RecordedWithin the past 12 months we worried whether our food would run out before we got money to buy more.Never True04/19/2024Within the past 12 months the food we bought just didn't last and we didn't have money to get more.Sometimes True04/19/2024urpose - LifeAnswer Date RecordedI have a purpose and direction in my life.Agree12/21/2021Education AnswerDate RecordedWhat is the highest level of school you have completed or the highest degree you have received?Associate degree: occupational, technical, or vocational ndsuqec1612/29/2020CommentsNoSex and Gender InformationValue Date RecordedSex Assigned at XdgzoPcjjgj96/30/2019 9:46 PM EDTLegal SexFemale 12/30/2014 11:30 AM EDTGender KrupkpfgQgsajn62/30/2019 9:46 PM EDTSexual HhmfuyfklhuBgqacqip94/30/2019 9:46 PM EDT Last Filed Vital Signs Vital SignReadingTime TakenCommentsBlood Jmpmjgmx023/6004/21/2024 2:18 PM EST Aqfhm394204/21/2024 2:18 PM QNEYcbqpyenigc10.7 ??C (98 ??F)04/21/2024 2:18 PM EST Respiratory Ogpw418406/21/2023 2:18 PM ESTOxygen Gnqvakjpco29%04/21/2024 2:18 PM ESTInhaled Oxygen Concentration--Ziiaan587.3 kg (327 lb)04/21/2024 2:18 PM EST Obpgjf717.1 cm (5' 5 )04/21/2024 2:18 PM ESTBody Mass Index54.42106/21/2023 2:18 PM EST Plan of Treatment DateTypeDepartmentCare Team (Latest Contact Info)Frvftpivljt93/07/2026 1:30 PM ESTAppointment [facility] [address] [place] [address] Health MaintenanceDue DateLast DoneCommentsDTaP,Tdap and Td Vaccines (1 - Tdap) 1992Pap Smear1994Zoster (Shingles) Vaccine (1 of 2)10/26/2023 Fzuddmepl83, 1Depression Zonnkyqnb14/12/2025 01/06/2024Influenza Kfqvhom93dult BMI Ovtraieng05/26/2025 04/21/2024Tobacco Hsuwomgep97olon Cancer Screening 3 Year Bnsvsybpm31 Medical Devices Not on file Procedures Procedure NamePriorityDate/TimeAssociated DiagnosisCommentsCOLOGUARD NON-ILRYKGOVYVwjazpw40/30/2024 10:30 AM EST Screen for colon cancer MAMM SCREENING BILATERAL W JEKMqymkvh28/06/2023 10:49 AM EST Encounter for screening mammogram for malignant neoplasm of breast from Last 3 Months or Most Recently Relevant to Health Maintenance Results * Cologuard Non-[facility] (04/25/2024 10:30 AM EST)ComponentValueRef RangeTest MethodAnalysis TimePerformed AtPathologist SignatureEXTERNAL COLOGUARDNegative Xftbsvtq64/04/2024 1:32 PM [facility] (CLIA #:[id number]) Comment: NEGATIVE TEST RESULT. A negative Cologuard result indicates a low likelihood that a colorectal cancer (CRC) or advanced adenoma (adenomatous polyps with more advanced pre-malignant features) ??is present. The chance that a person with a negative Cologuard test has a colorectal cancer is less than 1in 1500 (negative predictive value >99.9%) or has an advanced adenoma is less than 5.3% (negative predictive value 94.7%). These data are based on a prospective cross-sectional study of 10,000individuals at average risk for colorectal cancer who were screened with both Cologuard and colonoscopy. (Lila Garland al, N Engl J Med 2014;370(14):9878-2390) The normal value (reference range) for this assay is negative. COLOGUARD RE-SCREENING RECOMMENDATION: Periodic colorectal cancer screening is an important part ofpreventive healthcare for asymptomatic individuals at average risk for colorectal cancer. ??Following a negative Cologuard result, the [place] [employer] Society and U.S. Multi-Society Task Force screening guidelines recommend a Cologuard re-screening interval of 3 years. References: [place] [employer] Guideline for Colorectal Cancer Screening: https://www.cancer.or g/cancer/lauhl-aarjoz-rahsav/vhqlsgzcw-zdiimtflu-jryaqlg/acs-recommendations.htm sangita; Juan Carlos FAITH, Kai CHRISTOPHER, Cristy REYNOLDS, Colorectal Cancer Screening: Recommendations for Physicians and Patients from the U.S. Multi-Society Task Force on Colorectal Cancer Screening , Am J Gastroenterology 2017; 112:1209-4330. TEST DESCRIPTION: Composite algorithmic analysis of stool DNA-biomarkers with hemoglobin immunoassay. ?? Quantitative values of individual biomarkers are not reportable and are not associated with individual biomarker result reference ranges. Cologuard is intended for colorectal cancer screening ofadults of either sex, 45 years or older, [...] (Lila Garland al, N Engl J Med 2014;370(14):7223-8268.) Cologuard may produce a false negative or false positive result (no colorectal cancer or precancerous polyp present at colonoscopy follow up). A negative Cologuard test result does not guarantee the absence of CRC or advanced adenoma (pre-cancer). The current Cologuard screening interval is every 3 years. ([place] [employer] and U.S. Multi-Society Task Force). Cologuard performance data in a 10,000 patient pivotal study using colonoscopy as the reference method can be accessed at the following location: www.SMART.Altavian/results. Additional description of the Cologuard test process, warnings and precautions can be found at www.colFincord.com. Specimen (Source)Anatomical Location / LateralityCollection Method / Volume Collection TimeReceived TimeStool specimen (specimen)Rectum structure / Unknown 04/25/2024 10:30 AM EST04/26/2024 7:17 PM EST Narrative Authorizing ProviderResult TypeResult StatusDennis G Furlong DOLAB ORDERABLES Final ResultPerforming OrganizationAddressCity/State/ZIP CodePhone Number [facility] (CLIA #:[id number]) [address] [place] [address], * Mammography screening bilateral with CAD (04/01/2023 10:49 AM EST)Anatomical RegionLateralityModalityBreastBilateralMammographySpecimen (Source)Anatomical Location / LateralityCollection Method / VolumeCollection TimeReceived Time 04/01/2023 1:42 PM EST Narrative 04/01/2023 1:50 PM EST MAMM SCREENING BILATERAL W CAD 04/01/2023 10:29 AM HISTORY: Encounter for screening mammogram for malignant neoplasm of breast TECHNIQUE: Bilateral CC and MLO 3-D tomosynthesis with C-views performed. Computer-aided detection was used in the interpretation of this examination. COMPARISON: 07/05/2020 FINDINGS: Breast density: There are scattered areas of fibroglandular density. ?? No suspicious calcifications, masses or architectural distortion. There are stable appearing intramammary lymph nodes bilaterally IMPRESSION: * ?? No mammographic evidence of malignancy. ASSESSMENT- BI-RADS [...] 1:50 PM 2 b MAMM 1 YR Authorizing ProviderResult TypeResult StatusDennis G [facility] Hospitalnohelia DOI MAMMOGRAPHY ORDERABLESFinal Result from Last 3 Months or Most Recently Relevant to Health Maintenance Insurance
--- OUTSIDE RECORDS SUMMARY | 2025-05-22 06:38 | XMS_ITS | Clinical Summary ---
Author Organization [facility] Address [address], [address] [place] [address] Care Team Providers Care Football Scout Name Role Phone Ruth Ann Grant MD Primary Care Provider [phone] Allergies Active AllergyReactionsCriticalityNoted NglnNurldvdvDnhiyighowho09/01/2022 Gwgcbovwrrtxaw94/01/2022 Medications MedicationSigDispense QuantityRefillsLast FilledStart DateEnd DateStatus magnesium oxide (MAG-OX) 400 MG tablet take 1 tablet by mouth twice a day FOR 8 WEEKS AND THEN 1 tablet NIGHTLY 05/14/2021ctive meloxicam (MOBIC) 15 MG tablet 06/26/2021ctive metFORMIN (GLUCOPHAGE-XR) 500 MG extended release tablet take 1 tablet by mouth once daily with wtgwcotje70/16/2022ctive oxybutynin (DITROPAN) 5 MG tablet take 1 tablet by mouth twice a day04/27/2021ctive spironolactone-hydroCHLOROthiazide (ALDACTAZIDE) 25-25 MG per tablet take 1 tablet by mouth once daily06/13/2021ctive buPROPion (WELLBUTRIN XL) 300 MG extended release tablet 05/26/2021ctive carBAMazepine (TEGRETOL XR) 200 MG extended release tablet take 1 tablet by mouth twice a day06/13/2021ctive DULoxetine (CYMBALTA) 60 MG extended release capsule take 1 capsule by mouth twice a day06/11/2021ctive vitamin D (ERGOCALCIFEROL) 1.25 MG (53224 UT) CAPS capsule 05/21/2021ctive levothyroxine (SYNTHROID) 75 MCG tablet take 1 tablet by mouth once daily01/16/2022Active liothyronine (CYTOMEL) 5 MCG tablet 2Active Active Problems ProblemNoted DateDiagnosed DateWorsening body fluid /01/2022Weight gain, clrhrivw86/01/2022Thyroid clnavlsggaa56/01/8579Vkbfmwwfpfve17/01/2022 Fsceofd5306/27/20217554Bvptmawxjw24/01/2022 Family History Medical HistoryRelationNameCommentsDiabetesFatherHypertensionFatherDiabetes MotherHypertensionMotherThyroid DiseaseMotherRelationNameStatusCommentsFather AliveMotherAlive Social History Tobacco UseTypesPacks/DayYears UsedDateSmoking Tobacco: NeverSmokeless Tobacco: NeverAlcohol UseStandard Drinks/WeekCommentsNever0 (1 standard drink = 0.6 oz pure alcohol)CommentsUnknownSex and Gender InformationValueDate Recorded Sex Assigned at BirthNot on fileLegal TjqLiqrgo27/10/2013 8:50 PM ESTGender IdentityNot on fileSexual OrientationNot on file Last Filed Vital Signs Vital SignReadingTime TakenCommentsBlood Lglayijt220/78006/27/2021 2:37 PM EST Onoqf19757/01/2022 2:37 PM UGFVgyvvdmvhle30.6 ??C (97.8 ??F)06/27/2021 2:37 PM ESTRespiratory Gage649906/27/2021 2:37 PM ESTOxygen Saturation--Inhaled Oxygen Concentration--Fipbwr452.2 kg (317 lb 14.4 oz)06/27/2021 2:37 PM KNJBiajcc530.1 cm (5' 5 )06/27/2021 2:37 PM ESTBody Mass Index52.9006/27/2021 2:37 PM EST Plan of Treatment Not on file Insurance Care Teams Team MemberRelationshipSpecialtyStart DateEnd Date Ruth Ann Grant MD PCP - GeneralFamoly Medicine09/05/20
--- OUTSIDE RECORDS SUMMARY | 2025-05-22 06:38 | XMS_ITS | Clinical Summary ---
Author Organization [facility] Address [address] [place] [address] Phone Care Team Providers Care Insulation Cutter Name Role Phone Unavailable Primary Care Provider Unavailabl e Social History Tobacco UseTypesPacks/DayYears UsedDateSmoking Tobacco: Never Assessed CommentsUnknownSex and Gender InformationValueDate RecordedSex Assigned at Not on fileLegal XjaOonveu84/25/2022 9:07 PM ESTGender IdentityNot on fileSexual OrientationNot on file Plan of Treatment Not on file
[2025-05-22 08:00] VITALS: BP 184/83; PULSE 75; O2SAT 97
--- NOTE | 2025-05-22 08:47 | ED.GENADUL1 ---
HPI HPI - General Adult General Chief complaint: Dental/Oral Stated complaint: dental Time Seen by Provider: 05/22/25 07:17 Source: patient Mode of arrival: walk-in History of Present Illness HPI narrative: Patient is a 49-year-old female presenting to the emergency department for concerns of a dental fracture. Patient believes that she chipped her tooth last night. She is having significant pain in the left upper molar. She denies any other symptoms such as difficulty breathing/swallowing, fevers, nausea, vomiting, facial swelling, or any other concerning symptoms. She states she is going to call her dentist to make an appointment, but is requesting pain meds and antibiotics. She is otherwise healthy with no significant medical conditions. She has been taking oral Motrin for the pain. Related Data Home Medications ?Medication ?Instructions ?Recorded ?Confirmed bupropion HCl 300 mg 24 hr tablet, 300 mg PO DAILY 11/19/23 05/22/25 extended release cyclobenzaprine 5 mg tablet 5 mg PO BEDTIME 11/19/23 05/22/25 duloxetine 60 mg capsule,delayed 60 mg PO BEDTIME 11/19/23 05/22/25 release ergocalciferol (vitamin D2) 1,250 50,000 unit PO QWEEK 11/19/23 05/22/25 mcg (50,000 unit) capsule levothyroxine 75 mcg tablet 75 mcg PO DAILY 11/19/23 05/22/25 metformin 500 mg tablet 500 mg PO BID 11/19/23 05/22/25 spironolactone 25 1 tab PO DAILY 11/19/23 05/22/25 mg-hydrochlorothiazide 25 mg tablet Previous Rx's ?Medication ?Instructions ?Recorded amoxicillin 500 mg capsule 500 mg PO Q8H 7 days #21 caps 05/22/25 Allergies Allergy/AdvReac Type Severity Reaction Status Date / Time ciprofloxacin (From Cipro) Allergy Severe rash Verified 05/22/25 06:20 metoclopramide (From Reglan) AdvReac Intermediate Rash Verified 05/22/25 06:20 promethazine (From Phenergan) AdvReac Intermediate Agitated Verified 05/22/25 06:20 Opioid HPI Opioid Management Most Recent Opioid Data: Last Pain Scale 7 12/20/24, 17:19 Review of Systems ROS Status of ROS 10 or more systems reviewed and unremarkable except as noted in history and below PFSH PFSH Social History Little interest or pleasure in doing things: not at all Feeling down, depressed, or hopeless: not at all Exam Narrative Exam Narrative: CONSTITUTIONAL: Well-appearing, answering questions and following commands appropriately SKIN: Was warm and dry. EYES: Sclerae white. EARS, NOSE, THROAT: The left upper first molar is fractured. There is mild tenderness to percussion. The gingiva is pink and well-appearing. There is no fluctuance or palpable abscess. There is no facial, maxillary, or mandibular swelling. No trismus. 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 Speaking with normal voice. No neck swelling. RESPIRATORY: Nonlabored respirations. CARDIOVASCULAR: Normal rate and regular rhythm. There is no S3, S4, murmur, rub. GASTROINTESTINAL: Abdomen is nondistended. MUSCULOSKELETAL: No peripheral edema. NEUROLOGIC: Patient is awake and alert. Facies were symmetrical. Constitutional Vital Signs, click to edit/add: Last Vital Signs Temp 98.6 F 05/22/25 06:20 Pulse 75 05/22/25 08:00 Resp 18 05/22/25 08:00 BP 184/83 H 05/22/25 08:00 Pulse Ox 97 05/22/25 08:00 O2 Del Method Room Air 05/22/25 08:00 Course Vital Signs Vital signs: Vital Signs Temperature 98.6 F 05/22/25 06:20 Pulse Rate 84 05/22/25 06:20 Respiratory Rate 20 05/22/25 06:20 Blood Pressure 171/104 H 05/22/25 06:20 Pulse Oximetry 96 05/22/25 06:20 Oxygen Delivery Method Room Air 05/22/25 06:20 Temperature 98.6 F 05/22/25 06:20 Pulse Rate 75 05/22/25 08:00 Respiratory Rate 18 05/22/25 08:00 Blood Pressure 184/83 H 05/22/25 08:00 Pulse Oximetry 97 05/22/25 08:00 Oxygen Delivery Method Room Air 05/22/25 08:00 Medical Decision Making [facility] Narrative Medical decision making narrative: Patient is a 49-year-old female presenting to the emergency department for evaluation of left upper first molar pain after fracturing her tooth last night. Her vital signs are within normal limits. She is afebrile and hemodynamically stable. Her examination was consistent with a fractured tooth, there is no evidence of significant odontogenic infection. No facial swelling or concern for airway compromise. She was given topical benzocaine for symptomatic treatment. I do believe the patient is stable for discharge. They were instructed to follow up with her dentist for definitive treatment. Return precautions were given including any new or worsening symptoms. They were given a prescription for amoxicillin 500 mg 3 times daily x 7 days for infection prophylaxis. Patient understands and agrees to the plan. FINAL IMPRESSION: #Acute fracture of the left upper molar DISPOSITION: Discharged home CONDITION: Good Discharge Plan Discharge Chief Complaint: Dental/Oral Clinical Impression: Fracture of tooth Patient Disposition: Home, Self-Care Time of Disposition Decision: 07:30 Condition: Good Mode of Transportation: Private Vehicle Prescriptions / Home Meds: New amoxicillin 500 mg capsule 500 mg PO Q8H 7 Days Qty: 21 0RF No Action spironolacton-hydrochlorothiaz 25-25 mg tablet 1 tab PO DAILY metformin 500 mg tablet 500 mg PO BID levothyroxine 75 mcg tablet 75 mcg PO DAILY ergocalciferol (vitamin D2) 1,250 mcg (50,000 unit) capsule 50,000 unit PO QWEEK duloxetine 60 mg capsule,delayed release(DR/EC) 60 mg PO BEDTIME cyclobenzaprine 5 mg tablet 5 mg PO BEDTIME bupropion HCl 300 mg tablet extended release 24 hr 300 mg PO DAILY Print Language: Indian Instructions: Toothache (ED) Referrals: PAUL RAZO [Primary Care Provider, Family Practice] - 1 week Discharge Date/Time: 05/22/25 08:05
== END 2025-05-22 08:05 | disposition home or self-care (01) ==
PROVIDERS: Emergency Provider Student in an Organized Health Care Education/Training Program; PCP Family Medicine
DX: S02.5XXA Fracture of tooth (traumatic), initial encounter for closed fracture (principal); K08.89 Other specified disorders of teeth and supporting structures
CPT/HCPCS: 99284